=== PATIENT | female | born 1955 | race Caucasian/White ===

== ENCOUNTER 2019-12-18 10:43 | Outpatient (CLI) | payer OTHER, SELFPAY ==
--- NOTE | ~2019-12-18 | US_ITS ---
EXAMINATION: US abdomen complete DATE: 12/18/2019 11:18 INDICATION: Nausea with vomiting, unspecified, cholecystectomy TECHNIQUE: Multiple grayscale and Doppler ultrasound images of the abdomen were obtained. COMPARISON: None available FINDINGS: Bowel gas obscures visualization of the pancreas. The visualized portions of the pancreas a re unremarkable. The liver is normal with normal echogenicity and echotexture. No surface nodularity. Normal hepatopetal flow in the main portal vein. The gallbladder is surgically absent. The normal po stcholecystectomy common bile duct measures 7 mm. The visualized portions of the inferior vena cava a re normal. There is calcified atherosclerosis of the aorta. The right kidney measures 9.8 x 3.0 x 4.3 cm. The left kidney measures 8.8 x 3.5 x 4.0 cm. The kidney s demonstrate normal parenchymal echogenicity. There is no hydronephrosis. The spleen is normal in ap pearance and measures 6.5 cm. IMPRESSION: 1. Unremarkable postcholecystectomy ultrasound. No sonographic correlate for the patient's symptoms. Reviewed, dictated and finalized at location A. IMPRESSION: 1. Unremarkable postcholecystectomy ultrasound. No sonographic correlate for th e patient's symptoms.
== END 2019-12-18 10:44 | disposition home or self-care (01) ==
PROVIDERS: PCP Family Medicine; Visit Provider Internal Medicine Gastroenterology
DX: R10.9 Unspecified abdominal pain (principal); R11.2 Nausea with vomiting, unspecified; Z90.49 Acquired absence of other specified parts of digestive tract
CPT/HCPCS: 76700

== ENCOUNTER 2020-01-12 00:34 | Outpatient (CLI) | payer OTHER, SELFPAY ==
[2020-01-12 14:01] LABS: SARS-CoV-2 RNA PCR Negative
== END 2020-01-12 00:35 | disposition home or self-care (01) ==
LOC: ANHCOVIDDT 00:34
PROVIDERS: PCP Family Medicine; Visit Provider Internal Medicine Gastroenterology
DX: Z01.812 Encounter for preprocedural laboratory examination (principal); Z20.828 Contact with and (suspected) exposure to other viral communicable diseases
CPT/HCPCS: 87635; C9803; U0003

== ENCOUNTER → 2020-01-25 17:53 | Outpatient (CLI) | payer OTHER, SELFPAY ==
--- NOTE | ~2020-01-25 | MM_ITS ---
EXAMINATION: MM screening teri BI w odette HISTORY: Screening mammogram TECHNIQUE: Craniocaudal and mediolateral oblique 3-D tomosynthesis images were obtained and synthetic 2-D images were generated. CAD analysis was submitted and interpreted. COMPARISON: 11/22/2018, 10/21/2017 bilateral digital screening mammogram examinations BREAST PARENCHYMAL COMPOSITION: There are scattered areas of fibroglandular density. FINDINGS: Biopsy marker on the left; history of prior benign left breast biopsy.. There is no evidenc e of suspicious mass, calcification, or architectural distortion to suggest malignancy in either [address]. There has been no suspicious interval change. IMPRESSION: 1. No mammographic evidence of malignancy. 2. Recommend routine screening mammography in one year. BI-RADS Category 1: Negative Reviewed, dictated and finalized at location A.
== END ==
PROVIDERS: PCP Family Medicine; Visit Provider Physician Assistant
DX: Z12.31 Encounter for screening mammogram for malignant neoplasm of breast (principal)
CPT/HCPCS: 77063; 77067

== ENCOUNTER 2020-02-26 01:05 | Outpatient (CLI) | payer OTHER, SELFPAY ==
[2020-02-26 19:48] LABS: SARS-CoV-2 RNA PCR Negative
== END 2020-02-26 01:06 | disposition home or self-care (01) ==
LOC: ANHCOVIDDT 01:05
PROVIDERS: PCP Family Medicine; Visit Provider Internal Medicine Gastroenterology
DX: Z01.818 Encounter for other preprocedural examination (principal); Z20.828 Contact with and (suspected) exposure to other viral communicable diseases
CPT/HCPCS: 87635; C9803; U0003

== ENCOUNTER 2020-02-29 00:59 | Day surgery (SDC) | payer OTHER, SELFPAY ==
[2020-01-09 12:43] VITALS: BMI 18.8
[2020-02-25 13:20] VITALS: BMI 18.5
--- NOTE | 2020-02-29 07:54 | WPDANESEPPF ---
Anes - Initial Pre Proc Eval Procedure: Operation Date: 02/29/20 08:30 Proposed Procedures p Esophagogastroduodenoscopy - Ricky Shell MD Date/Time: 02/29/20 07:54 Surgeon: Ricky Shell MD Pre Op Diagnosis: N & V Patient Data Age: 64 Gender: F Height: 1.57 m Weight: 46 kg Allergies Allergy/AdvReac Type Severity Reaction Status Date / Time morphine Allergy Severe DISORIENTED, Verified 02/25/20 13:15 DENIES HELPING PAIN meperidine Allergy Unknown Vomiting Verified 02/25/20 13:15 tramadol Allergy Unknown Unknown Verified 02/25/20 13:15 metronidazole AdvReac Severe SEVERE Verified 02/25/20 13:15 NAUSEA, VOMITING AND SHAKING Home Medications Medication Instructions Recorded Confirmed Type ondansetron HCl 4 mg tablet 4 mg PO TID PRN #30 tablet 02/27/19 01/31/20 Rx aspirin 81 mg tablet,delayed 81 mg PO DAILY 04/20/19 01/31/20 History release albuterol sulfate 90 mcg/actuation 2 puff INHALATION Q4-6H PRN #8 gm 12/18/19 01/31/20 Rx aerosol inhaler amlodipine 5 mg tablet 5 mg PO DAILY #90 tablet 12/18/19 01/31/20 Rx fluoxetine 20 mg capsule 20 mg PO DAILY #90 cap 12/18/19 01/31/20 Rx hyoscyamine sulfate 0.125 mg 0.125 mg SUBLINGUAL QID PRN #120 12/18/19 01/31/20 Rx sublingual tablet tablet tiotropium bromide 2.5 2 puff INHALATION DAILY #4 gm 12/18/19 01/31/20 Rx mcg/actuation mist for inhalation hydrocodone 7.5 mg-acetaminophen 1 tablet PO Q4-6H PRN #120 tablet 02/13/20 02/25/20 Rx 325 mg tablet diclofenac sodium 75 mg PO DAILY 02/25/20 02/25/20 History misoprostol 200 mcg PO DAILY 02/25/20 02/25/20 History Patient hx anesthesia problems: none Family hx anesthesia problems: none PMFSH Past Medical History Medical History Abdominal pain Breast cancer screening Colon cancer screening COPD mixed type Current smoker Early satiety History of vaginal delivery IBS (irritable colon syndrome) Narcotic dependence Osteoarthritis of back Primary hypertension Spinal stenosis Tobacco abuse Trigger finger of thumb Weight loss Surgical History Surgical History History of ankle surgery History of appendectomy History of cholecystectomy History of hysterectomy History of release of tendon History of tonsillectomy and adenoidectomy Social History Social History Smoking packs per day: 1 Smoking cigarettes per day: 20.0 Years smoked: 50 Smoking pack-years: 50.00 Smoking status: Current every day smoker Tobacco type: cigarettes Second hand tobacco smoke exposure: Yes Alcohol intake: never Substance use: never Substance use type: does not use Living arrangements: with family Additional occupation/education 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 Gender identity (if verbalized by the patient): Female Spiritual care concerns: No Agree to blood products: Yes Anes - Eval Final PreProcedure Day of Procedure 02/29/20 07:54 Patient weight: normal Heart: regular rate and rhythm Lungs: clear to auscultation and normal air movement Airway: Mallampati scale class II Neurological: alert and oriented Last oral intake: >/= 8 hours ASA classification: III Emergent: no Anesthetic plan: proceed Anesthesia type and monitoring: general GIVS Informed Consent: The patient's anesthetic plan and its attendant risks and benefits were discussed with the patient/family/POA. Questions were solicited and answers provided to the satisfaction of the patient/family/POA.
[2020-02-29 08:01] VITALS: BP 144/88; PULSE 67; RESP 18; TEMP 36.8; O2SAT 97; BMI 18.8
[2020-02-29] MEDS: LACTATED RINGERS 1,000 ML 150 ML IV CONT (08:09)
--- NOTE | 2020-02-29 08:12 | WPDHPUPDATE1 ---
History and Physical Update Update Date/Time: 02/29/20 08:12 History and Physical has been reviewed, including an updated exam of the patient. There are NO changes in the patient's condition. Risks, benefits, and alternatives have been discussed and questions answered. Patient agrees to proceed with procedure.
[2020-02-29 08:29] VITALS: BP 114/75; PULSE 66; RESP 20; O2SAT 100
[2020-02-29 08:39] VITALS: BP 125/73; PULSE 62; RESP 19; O2SAT 98
[2020-02-29 08:49] VITALS: BP 141/75; PULSE 63; RESP 20; O2SAT 99
== END 2020-02-29 08:56 | disposition home or self-care (01) ==
PROVIDERS: PCP Family Medicine; Visit Provider Internal Medicine Gastroenterology
PROC: 0DJ08ZZ Inspection of Upper Intestinal Tract, Via Natural or Artificial Opening Endoscopic (ICD-10-PCS; CPT 43235; principal; 2020-02-29 08:30)
DX: R11.0 Nausea (principal); R10.12 Left upper quadrant pain; K44.9 Diaphragmatic hernia without obstruction or gangrene; K29.50 Unspecified chronic gastritis without bleeding; J44.9 Chronic obstructive pulmonary disease, unspecified; K58.9 Irritable bowel syndrome, unspecified; I10 Essential (primary) hypertension; F17.210 Nicotine dependence, cigarettes, uncomplicated
CPT/HCPCS: 43239; 88305; J2704; J7120

== ENCOUNTER 2020-06-19 13:10 | Outpatient (CLI) | payer OTHER, SELFPAY ==
[2020-06-19 13:38] LABS: Hematocrit 43.1 % (37.0-47.0); Hemoglobin 14.8 g/dL (12.0-15.0); Mean Corpuscular HGB Conc 34.3 g/dl (32-36); Mean Corpuscular Hemoglobin 33.9 pg (26-34); Mean Corpuscular Volume 98.9 fl (80-100); Mean Platelet Volume 9.9 fl (7.4-10.4); Platelet Count Result 266 k/mm3 (150-375); Red Blood Count 4.36 M/mm3 (4.2-5.4); Red Cell Distribution Width 14.1 % (11.5-14.5)
[2020-06-19 13:57] LABS: Potassium 3.5 mmol/L (3.4-5.0)
[2020-06-19 14:17] LABS: Alanine Aminotransferase 11 U/L (4-35); Alkaline Phosphatase 82 U/L (38-126); Anion Gap 3 mmol/L (8-16); Aspartate Amino Transferase 21 U/L (14-36); Bilirubin,Total 0.6 mg/dL (0.2-1.3); Blood Urea Nitrogen 11 mg/dL (7-17); Calcium 9.1 mg/dL (8.4-10.2); Carbon Dioxide 32 mmol/L (22-30); Chloride 105 mmol/L (98-107); Estimated Glomerular Filt Rate > 60; Glucose 97 mg/dL (65-105); Lipase 79 U/L (23-300); Sodium 140 mmol/L (137-145); Triglycerides 133 mg/dL (<150)
== END 2020-06-19 13:11 | disposition home or self-care (01) ==
LOC: ANHLAB 13:10
PROVIDERS: PCP Physician Assistant; Visit Provider Internal Medicine Gastroenterology
DX: R10.84 Generalized abdominal pain (principal); R11.0 Nausea; Z87.19 Personal history of other diseases of the digestive system
CPT/HCPCS: 36415; 80053; 83690; 84478; 85027

== ENCOUNTER 2020-07-02 10:55 | Outpatient (CLI) | payer OTHER, SELFPAY ==
--- NOTE | ~2020-07-02 | MR_ITS ---
EXAMINATION: MR MRCP wo/w con/w 3D wo ind DATE: 07/02/2020 12:08 INDICATION: Generalized abdominal pain. Nausea. TECHNIQUE: Magnetic resonance imaging (MRI) of the abdomen was performed without and with 9 mL MultiH ance intravenous contrast. Sequences included coronal T2-weighted FS FSE, coronal T2-weighted FSE, ax ial T1-weighted LAVA, coronal FS FIESTA, axial dual-echo T1-weighted SPGR, coronal lava-FLEX, sagitta l T2-weighted FSE, axial T2-weighted FSE, and axial DWI. Thick-slab T2-weighted FSE images were obtai mary for magnetic resonance cholangiopancreatography (MRCP). Maximum intensity projection 3-D reconstr uctions of the volumetric data were created by the technologist. Postcontrast sequences included linda nal LAVA-flex and time course of axial T1-weighted LAVA. COMPARISON: Ultrasound 12/18/2019 FINDINGS: ABDOMEN MRI: The liver is normal. The gallbladder is absent. The spleen, pancreas, adrenal glands, an d kidneys are normal. There is a 3.0 cm fusiform infrarenal aortic aneurysm. There are no dilated loo ps of bowel. There are no pathologically enlarged lymph nodes. There is no free intraperitoneal fluid . ABDOMEN MRCP: The common duct is normal and measures 10 mm. No choledocholithiasis. IMPRESSION: 1. 3.0 cm fusiform infrarenal aortic aneurysm. Reviewed, dictated and finalized at location A.
== END 2020-07-02 10:56 | disposition home or self-care (01) ==
PROVIDERS: PCP Physician Assistant; Visit Provider Internal Medicine Gastroenterology
DX: R10.84 Generalized abdominal pain (principal); Z87.19 Personal history of other diseases of the digestive system; R11.0 Nausea; I71.9 Aortic aneurysm of unspecified site, without rupture
CPT/HCPCS: 74183; 76376; A9577

== ENCOUNTER 2020-07-04 07:41 | Outpatient (CLI) | payer OTHER, SELFPAY ==
--- NOTE | ~2020-07-04 | NM_ITS ---
EXAM: NM gastric emptying study DATE: 07/04/2020 13:44 INDICATION: Generalized abdominal pain TECHNIQUE: A gastric emptying study was performed using the methodology of Butch GOMES, et al. J Nucl Med 2007; 48:568-572. The patient was given a meal consisting of 2 scrambled eggs labeled with 0.99 mCi Tc-99m sulfur colloid, 2 slices of toast, two packages of jam, and approximately 120 mL of water. Simultaneous anterior and posterior 1-min images of the abdomen were obtained with the patient supin e at multiple time points over a total period of 4 hours. The geometric mean of anterior and posterio r views was determined, and the percentage retention was calculated for each time point. COMPARISON: None. FINDINGS: Gastric retention of the radiotracer-labeled meal was 49%, 18%, and 2% at the 80 minute, 2-hour, and 4-hour time points, respectively. With this technique, apparent rapid gastric emptying is suggested b y <30% gastric retention at 1 hour. Delayed gastric emptying is defined by gastric retention of >90% at 1 hour, >60% retention at 2 hours, or >10% retention at 4 hours. IMPRESSION: 1. Normal gastric emptying. Reviewed, dictated and finalized at location B. IMPRESSION: 1. Normal gastric emptying.
== END 2020-07-04 07:42 | disposition home or self-care (01) ==
PROVIDERS: PCP Physician Assistant; Visit Provider Internal Medicine Gastroenterology
DX: R10.84 Generalized abdominal pain (principal); R11.0 Nausea; Z87.19 Personal history of other diseases of the digestive system
CPT/HCPCS: 78264; A9541

== ENCOUNTER 2020-10-13 08:44 | Outpatient (CLI) | payer OTHER, SELFPAY ==
--- NOTE | ~2020-10-13 | CT_ITS ---
EXAMINATION: CT lung screening DATE: 10/13/2020 09:17 INDICATION: Personal history of nicotine dependence, current smoker with 50 pack year history TECHNIQUE: Computed tomography (CT) of the chest was performed without intravenous contrast. The dose -length product (DLP) was 58.30 mGy-cm. Automated exposure control and iterative reconstruction techn [employer] were employed. COMPARISON: 10/31/2018 FINDINGS: Calcified pulmonary nodules and calcified left lymph nodes are consistent with old granulom atous disease. There is mild emphysema. Scattered 1 to 2 mm nodules of the lungs are stable. No new o r suspicious pulmonary nodule is identified. No pathologically enlarged thoracic lymph nodes are iden tified. The heart size is normal. Calcified coronary artery atherosclerosis is noted. Cholecystectomy clips are present in the right upper quadrant. There is mild thoracic spondylosis. IMPRESSION: 1. Lung-RADS category 2: Benign appearance or behavior. Continue annual screening with noncontrast lo w-dose chest CT in 12 months. Reviewed, dictated and finalized at location B. IMPRESSION: 1. Lung-RADS category 2: Benign appearance or behavior. Continue annual screeni ng with noncontrast low-dose chest CT in 12 months.
== END 2020-10-13 08:45 | disposition home or self-care (01) ==
LOC: ANHIMG 08:47
PROVIDERS: PCP Family Medicine; Visit Provider Family Medicine
DX: Z12.2 Encounter for screening for malignant neoplasm of respiratory organs (principal); R91.1 Solitary pulmonary nodule; F17.200 Nicotine dependence, unspecified, uncomplicated
CPT/HCPCS: 71271

== ENCOUNTER 2020-10-31 08:33 | Outpatient (CLI) | payer OTHER, SELFPAY ==
--- NOTE | 2020-11-03 14:25 | WPDPFTINT ---
PFT Procedure Performed PFT Procedure Performed Plethysmography (Lung Vol) Diffusing Cap (DLCO) Flow Vol Loop Spirometry w/o Bronchodil PFT Interpretation DOS: 10/31/2020 REQUESTING: Dr. Anaya De La Torre REASON FOR TESTING: emphysema PULMONARY FUNCTION TESTS Results are reliable and reproducible. Spirometry: FEV1 is 69% mildly decreased, 1.44 L. FVC is normal 82%. The FEV1/FVC ratio is reduced 66% consistent with mild obstruction. No bronchodilator was given. Lung volumes: total lung capacity is 117% upper limits of normal. Vital capacity 90%. residual volume is moderately increased 154% consistent with moderate air trapping. Airway resistance is increased 163%. Diffusion: DLCO is moderately reduced 51%. Flow volume loop: There is mild scooping of the expiratory limb consistent with obstruction. IMPRESSION: Mild obstructive ventilatory impairment with moderate air trapping and moderate diffusion impairment. this is consistent with emphysema. No bronchodilator was given. No prior studies are available for comparison. Yuliana Stack MD
== END 2020-10-31 08:34 | disposition home or self-care (01) ==
LOC: ANHPFT 08:34
PROVIDERS: PCP Family Medicine; Visit Provider Family Medicine
DX: J43.9 Emphysema, unspecified (principal)
CPT/HCPCS: 94375; 94726; 94729

== ENCOUNTER 2021-11-17 00:08 | Day surgery (SDC) | payer OTHER, SELFPAY ==
[2021-10-29 13:55] VITALS: BMI 20.1
[2021-11-17 08:55] VITALS: BP 157/68; PULSE 87; RESP 18; TEMP 36.5; O2SAT 97; BMI 20.9
[2021-11-17] MEDS: LACTATED RINGERS 1,000 ML 150 ML IV CONT (09:14)
[2021-11-17] MEDS: ONDANSETRON INJ 4 MG/2 ML VIAL IV PUSH (09:16)
--- NOTE | 2021-11-17 09:40 | WPDANESEPPF ---
Anes - Initial Pre Proc Eval Procedure: Operation Date: 11/17/21 10:15 Proposed Procedures p Screening Colonoscopy - Ricky Shell MD Date/Time: 11/17/21 09:40 Surgeon: Ricky Shell MD Pre Op Diagnosis: neoplasm screening Patient Data Age: 65 Gender: F Height: 1.57 m Weight: 52.1 kg Last Vital Signs Temp 97.7 F 11/17/21 08:55 Pulse 87 11/17/21 08:55 Resp 18 11/17/21 08:55 BP 157/68 H 11/17/21 08:55 Pulse Ox 97 11/17/21 08:55 O2 Del Method Room Air 11/17/21 08:55 Allergies Allergy/AdvReac Type Severity Reaction Status Date / Time morphine Allergy Severe DISORIENTED, Verified 11/17/21 09:00 DENIES HELPING PAIN meperidine Allergy Unknown Vomiting Verified 11/17/21 09:00 tramadol Allergy Unknown Unknown Verified 11/17/21 09:00 metronidazole AdvReac Severe SEVERE Verified 11/17/21 09:00 NAUSEA, VOMITING AND SHAKING Home Medications Medication Instructions Recorded Confirmed Type hyoscyamine sulfate 0.125 mg 0.125 mg sublingual QID PRN 12/18/19 11/17/21 Rx sublingual tablet dyspepsia #120 tabs ondansetron HCl 4 mg tablet 4 mg PO TID PRN nausea and 01/29/21 11/17/21 Rx vomiting #90 tabs fluoxetine 20 mg capsule 20 mg PO DAILY #90 caps 02/09/21 11/17/21 Rx sodium,potassium,mag sulfates 17.5 See Rx Instructions PO .COMPLEX 03/23/21 11/17/21 Rx gram-3.13 gram-1.6 gram oral soln #354 mL (Suprep Bowel Prep Kit) amlodipine 5 mg tablet 5 mg PO DAILY #90 tabs 04/08/21 11/17/21 Rx mirtazapine 15 mg tablet 15 mg PO QHS #30 tabs 09/04/21 11/17/21 Rx albuterol sulfate 90 mcg/actuation 2 puff inhalation Q4-6H PRN 09/09/21 11/17/21 Rx aerosol inhaler (ProAir HFA) shortness of breath or wheezing #8 grams tiotropium bromide 2.5 See Rx Instructions .Route 07/08/22 08/02/22 Rx mcg/actuation mist for inhalation .COMPLEX #4 grams (Spiriva Respimat) hydrocodone 7.5 mg-acetaminophen 1 tablet PO Q4-6H PRN pain #120 10/30/21 11/17/21 Rx 325 mg tablet tabs Patient hx anesthesia problems: none Family hx anesthesia problems: none Results Review: All pre-operative results and documents have been reviewed as part of the pre-operative evaluation. [facility] Past Medical History Medical History Abdominal pain Aneurysm of aorta Anxiety Bloating Breast cancer screening Colon cancer screening COPD mixed type Current smoker Early satiety Erosive gastritis Gastritis History of pancreatitis History of vaginal delivery IBS (irritable colon syndrome) Narcotic dependence Nausea Osteoarthritis of back Osteoporosis Peripheral vascular disease of extremity with claudication Primary hypertension Pulmonary emphysema Spinal stenosis Tobacco abuse Trigger finger of thumb Weight loss Surgical History Surgical History History of ankle surgery History of appendectomy History of cholecystectomy History of hysterectomy History of release of tendon History of tonsillectomy and adenoidectomy Social History Social History Smoking packs per day: 1 Smoking cigarettes per day: 20.0 Years smoked: 50 Smoking pack-years: 50.00 Smoking status: Current every day smoker Tobacco type: cigarettes Second hand tobacco smoke exposure: Yes Alcohol intake: never Substance use: current Substance use type: opiates Living arrangements: with family Additional occupation/education 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 Gender identity (if verbalized by the patient): Female Spiritual care concerns: No Agree to blood products: Yes Anes - Eval Final PreProcedure Day of Procedure 11/17/21 09:40 Patient weight: normal Heart: regular rate and rhythm Lungs: clear to auscultation Airway: Mallampati scale class
--- NOTE | 2021-11-17 09:44 | PM.HPGS ---
History of Present Illness History of Present Illness Consent: Risks, benefits, and alternatives have been discussed and questions answered. Patient agrees to proceed with procedure. Chief complaint: neoplasm screening Narrative: Enriqueta Pisano is a 65 year old female here for screening colonoscopy, last one over 6 years ago Review of Systems Constitutional: Constitutional: Denies headache(s) and Denies weakness Eyes: Eyes: Denies blurry vision ENT: Reports Normal hearing present, Denies headache(s) and Denies neck pain Cardiovascular: Cardiovascular: Denies chest pain and Denies dyspnea Respiratory: Respiratory: Denies dyspnea Gastrointestinal: Gastrointestinal: Reports no additional gastrointestinal complaints Genitourinary: Genitourinary: Denies dysuria Musculoskeletal: Musculoskeletal: Denies neck pain Integumentary/Breasts: Skin/Breast: Denies dry skin Neurologic: Reports Normal hearing present, Denies headache(s) and Denies weakness Psychiatric: Psychiatric: Denies anxiety Endocrine: Endocrine: Denies change in body appearance Hematologic/Lymphatic: Hematologic/Lymphatic: Denies easy bleeding Allergic/Immunologic: Allergic/Immunologic: Denies urticaria PMFSH Past Medical History Medical History Abdominal pain Aneurysm of aorta Anxiety Bloating Breast cancer screening Colon cancer screening COPD mixed type Current smoker Early satiety Erosive gastritis Gastritis History of pancreatitis History of vaginal delivery IBS (irritable colon syndrome) Narcotic dependence Nausea Osteoarthritis of back Osteoporosis Peripheral vascular disease of extremity with claudication Primary hypertension Pulmonary emphysema Spinal stenosis Tobacco abuse Trigger finger of thumb Weight loss Surgical History Surgical History History of ankle surgery History of appendectomy History of cholecystectomy History of hysterectomy History of release of tendon History of tonsillectomy and adenoidectomy Social History Social History Smoking packs per day: 1 Smoking cigarettes per day: 20.0 Years smoked: 50 Smoking pack-years: 50.00 Smoking status: Current every day smoker Tobacco type: cigarettes Second hand tobacco smoke exposure: Yes Alcohol intake: never Substance use: current Substance use type: opiates Living arrangements: with family Additional occupation/education 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 Gender identity (if verbalized by the patient): Female Spiritual care concerns: No Agree to blood products: Yes Meds Home Medications and Allergies Home Medications Medication Instructions Recorded Confirmed Type hyoscyamine sulfate 0.125 mg 0.125 mg sublingual QID PRN 12/18/19 11/17/21 Rx sublingual tablet dyspepsia #120 tabs ondansetron HCl 4 mg tablet 4 mg PO TID PRN nausea and 01/29/21 11/17/21 Rx vomiting #90 tabs fluoxetine 20 mg capsule 20 mg PO DAILY #90 caps 02/09/21 11/17/21 Rx sodium,potassium,mag sulfates 17.5 See Rx Instructions PO .COMPLEX 03/23/21 11/17/21 Rx gram-3.13 gram-1.6 gram oral soln #354 mL (Suprep Bowel Prep Kit) amlodipine 5 mg tablet 5 mg PO DAILY #90 tabs 04/08/21 11/17/21 Rx mirtazapine 15 mg tablet 15 mg PO QHS #30 tabs 09/04/21 11/17/21 Rx albuterol sulfate 90 mcg/actuation 2 puff inhalation Q4-6H PRN 09/09/21 11/17/21 Rx aerosol inhaler (ProAir HFA) shortness of breath or wheezing #8 grams tiotropium bromide 2.5 See Rx Instructions .Route 10/23/21 11/17/21 Rx mcg/actuation mist for inhalation .COMPLEX #4 grams (Spiriva Respimat) hydrocodone 7.5 mg-acetaminophen 1 tablet PO Q4-6H PRN pain #120 10/30/21 11/17/21 Rx 325 mg tablet tabs Allergies Allergy/AdvReac Type Severity Reaction Status Date
[2021-11-17 10:05] VITALS: BP 104/64; PULSE 79; RESP 24; O2SAT 95
--- NOTE | 2021-11-17 10:08 | SUR.OPER ---
ONLY ONE ASCENDING COLON POLYP RETRIEVED, DOCTOR NOTIFIED. NO NEW ORDERS AT THIS TIME.
[2021-11-17 10:15] VITALS: BP 98/64; PULSE 69; RESP 22; O2SAT 97
[2021-11-17 10:25] VITALS: BP 109/69; PULSE 68; RESP 22; O2SAT 97
== END 2021-11-17 10:34 | disposition home or self-care (01) ==
PROVIDERS: PCP Family Medicine; Visit Provider Internal Medicine Gastroenterology
PROC: 0DJD8ZZ Inspection of Lower Intestinal Tract, Via Natural or Artificial Opening Endoscopic (ICD-10-PCS; CPT 45378; principal; 2021-11-17 10:15)
DX: Z12.11 Encounter for screening for malignant neoplasm of colon (principal); D12.0 Benign neoplasm of cecum; K63.5 Polyp of colon; K57.30 Diverticulosis of large intestine without perforation or abscess without bleeding; K64.8 Other hemorrhoids; I71.4 Abdominal aortic aneurysm, without rupture; F41.9 Anxiety disorder, unspecified; R14.0 Abdominal distension (gaseous); J44.9 Chronic obstructive pulmonary disease, unspecified; M81.0 Age-related osteoporosis without current pathological fracture; M19.90 Unspecified osteoarthritis, unspecified site; K29.70 Gastritis, unspecified, without bleeding; R68.81 Early satiety; K58.9 Irritable bowel syndrome, unspecified; I10 Essential (primary) hypertension; M48.00 Spinal stenosis, site unspecified; F17.210 Nicotine dependence, cigarettes, uncomplicated; Z79.51 Long term (current) use of inhaled steroids
CPT/HCPCS: 45385; 88305; J2405; J2704; J7120

== ENCOUNTER 2023-03-17 11:28 | Outpatient (CLI) | payer OTHER, SELFPAY ==
[2023-03-17 13:02] LABS: Hemoglobin 14.3 g/dL (12.0-15.0); Mean Corpuscular HGB Conc 32.5 g/dl (32-36); Mean Corpuscular Hemoglobin 33.5 pg (26-34); Mean Platelet Volume 10.6 fl (7.4-10.4); Platelet Count Result 268 k/mm3 (150-375); Red Blood Count 4.27 M/mm3 (4.2-5.4); Red Cell Distribution Width 15.1 % (11.5-14.5); White Blood Count 8.5 K/mm3 (4.5-10.0)
[2023-03-17 13:13] LABS: Alanine Aminotransferase 24 U/L (6-35); Albumin Level 4.5 g/dL (3.5-5.1); Alkaline Phosphatase 109 U/L (38-126); Amylase 79 U/L (30-110); Anion Gap 14 mmol/L (8-16); Aspartate Amino Transferase 28 U/L (14-36); Bilirubin,Total 0.7 mg/dL (0.2-1.3); Blood Urea Nitrogen 10 mg/dL (7-17); Carbon Dioxide 21 mmol/L (22-30); Chloride 106 mmol/L (98-107); Estimated Glomerular Filt Rate > 60; Glucose 103 mg/dL (65-110); Lipase 146 U/L (23-300); Potassium 3.5 mmol/L (3.4-5.0); Sodium 141 mmol/L (137-145)
== END 2023-03-17 11:29 | disposition home or self-care (01) ==
LOC: ANHLAB 11:29
PROVIDERS: PCP Family Medicine; Visit Provider Internal Medicine Gastroenterology
DX: R11.0 Nausea (principal); R14.0 Abdominal distension (gaseous)
CPT/HCPCS: 36415; 80053; 82150; 83690; 85027

== ENCOUNTER 2023-04-03 12:55 | Emergency (ER) | payer OTHER, SELFPAY ==
--- NOTE | ~2023-04-03 | XR_ITS ---
[[id number] ] INDICATION: Left rib pain TECHNIQUE: Frontal projection of the upper left ribs, frontal projection of the lower left ribs, obli que projection of all the left ribs, frontal inspiratory chest x-ray for interpretation. FINDINGS: There are no displaced rib fractures identified. There are no soft tissue abnormality see n. The lungs are clear. There are multiple calcified granulomas of the left lung. There is mild sco liosis. IMPRESSION: 1:No acute displaced rib fractures. Reviewed, dictated and finalized at location A. E ERECTOR SUPERVISOR
--- NOTE | 2023-04-03 12:58 | ED.GENADULT ---
HPI - General Adult General Chief complaint: Unspecified Stated complaint: rib pain left side Time Seen by Provider: 04/03/23 13:41 Mode of arrival: ambulatory Limitations: no limitations History of Present Illness HPI narrative: 67-year-old female presents with concern for left rib pain. Reports she was bending over in an awkward way yesterday when she felt a pop in her left anterior rib area. She reports that it hurts when taking a deep breath or coughing. She denies shortness of breath. Reports she has been using her albuterol and Spiriva as usual. MD complaint: Rib pain Related Data Home Medications Medication Instructions Recorded Confirmed tiotropium bromide 2.5 1 puff inhalation DIRECTED 04/03/23 04/03/23 mcg/actuation mist for inhalation (Spiriva Respimat) Allergies Allergy/AdvReac Type Severity Reaction Status Date / Time morphine Allergy Severe DISORIENTED, Verified 04/03/23 13:19 DENIES HELPING PAIN meperidine Allergy Unknown Vomiting Verified 04/03/23 13:19 tramadol Allergy Unknown Unknown Verified 04/03/23 13:19 metronidazole AdvReac Severe SEVERE Verified 04/03/23 13:19 NAUSEA, VOMITING AND SHAKING Review of Systems Review of Systems: CONSTITUTIONAL: Denies malaise, chills, sweats, or fever. EYES: Denies visual changes, redness, or discharge. ENT: Denies rhinorrhea, congestion, sinus pain, otalgia or sore throat. CARDIOVASCULAR: Denies chest pain, palpitations, or edema. RESPIRATORY: Reports chronic cough. Denies dyspnea. Reports left anterior rib pain SKIN: Denies bruising MUSCULOSKELETAL: Denies myalgia. NEUROLOGIC: Denies numbness, weakness All systems reviewed & are unremarkable except as noted in HPI and below PMFSH Past Medical History Medical History (Updated 04/03/23 @ 13:51 by Lanie Roldan NP) Abdominal pain Adenomatous colon polyp Aneurysm of aorta Anxiety Bloating Breast cancer screening Colon cancer screening COPD mixed type Current smoker Early satiety Erosive gastritis Gastritis History of pancreatitis History of vaginal delivery IBS (irritable colon syndrome) Narcotic dependence Nausea Osteoarthritis of back Osteoporosis Peripheral vascular disease of extremity with claudication Primary hypertension Pulmonary emphysema Spinal stenosis Tobacco abuse Trigger finger of thumb Weight loss Surgical History Surgical History History of ankle surgery History of appendectomy History of cholecystectomy History of hysterectomy History of release of tendon History of tonsillectomy and adenoidectomy Social History Social History Smoking packs per day: 1 Smoking cigarettes per day: 20.0 Years smoked: 50 Smoking pack-years: 50.00 Smoking status: Current every day smoker Tobacco type: cigarettes Second hand tobacco smoke exposure: Yes Alcohol intake: never Substance use: current Substance use type: opiates Lack of Transportation: No Lack of Food: Never True Current Housing: I Have Housing Concerned About Future Housing: No Difficulty Paying Gas/Electric Bills: No Difficulty Paying for Meds: No Currently Unemployed: No Education: High School Diploma/GED Difficulty w/ Childcare or Family Care: No Living arrangements: with family Occupation/Education: occupation Additional occupation/education 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 Gender identity (if verbalized by the patient): Female Spiritual care concerns: No Agree to blood products: Yes Comments At time of signature, agree with nursing past medical, surgical, social and family history. There is no relevant family history pertinent to the presenting complaint Exam Narrative: GENERAL: Well-appearing, well-nourished, and in no acute distress. HEAD: Normocephalic, a
[2023-04-03 13:08] VITALS: BP 152/75; PULSE 76; RESP 16; TEMP 36.9; O2SAT 95
== END 2023-04-03 13:54 | disposition home or self-care (01) ==
PROVIDERS: Emergency Provider Nurse Practitioner; PCP Family Medicine
DX: R07.81 Pleurodynia (principal); F17.210 Nicotine dependence, cigarettes, uncomplicated; I10 Essential (primary) hypertension; J44.9 Chronic obstructive pulmonary disease, unspecified; F41.9 Anxiety disorder, unspecified
CPT/HCPCS: 71101; 99213; G0463

== ENCOUNTER 2023-06-01 12:31 | Outpatient (CLI) | payer OTHER, SELFPAY ==
--- NOTE | ~2023-06-01 | XR_ITS ---
EXAMINATION: XR abdomen obstructive series DATE: 06/01/2023 12:51 INDICATION: Left abdominal pain. TECHNIQUE: Upright and supine views of the abdomen on 3 radiographs were obtained. COMPARISON: None. FINDINGS: There are no dilated loops of bowel. There is a moderate volume of stool in the colon. No f ree intraperitoneal gas. Surgical clips in the right upper quadrant are likely from cholecystectomy. There are phleboliths in the pelvis. IMPRESSION: 1. Normal bowel gas pattern. Reviewed, dictated and finalized at location A. CAPPER HELPER
[2023-06-01 13:17] LABS: Hematocrit 41.2 % (37.0-47.0); Hemoglobin 13.5 g/dL (12.0-15.0); Mean Corpuscular HGB Conc 32.8 g/dl (32-36); Mean Corpuscular Hemoglobin 32.5 pg (26-34); Mean Corpuscular Volume 99.3 fl (80-100); Mean Platelet Volume 9.9 fl (7.4-10.4); Platelet Count Result 259 k/mm3 (150-375); Red Blood Count 4.15 M/mm3 (4.2-5.4); Red Cell Distribution Width 14.4 % (11.5-14.5); White Blood Count 6.2 K/mm3 (4.5-10.0)
[2023-06-01 13:28] LABS: Alanine Aminotransferase 22 U/L (6-35); Albumin Level 3.8 g/dL (3.5-5.1); Alkaline Phosphatase 105 U/L (38-126); Anion Gap 6 mmol/L (8-16); Aspartate Amino Transferase 28 U/L (14-36); Bilirubin,Total 0.6 mg/dL (0.2-1.3); Blood Urea Nitrogen 11 mg/dL (7-17); Calcium 8.7 mg/dL (8.4-10.2); Carbon Dioxide 24 mmol/L (22-30); Chloride 108 mmol/L (98-107); Estimated Glomerular Filt Rate > 60; Glucose 96 mg/dL (65-110); Lipase 104 U/L (23-300); Sodium 138 mmol/L (137-145)
== END 2023-06-01 12:32 | disposition home or self-care (01) ==
PROVIDERS: PCP Family Medicine; Visit Provider Physician Assistant
DX: R10.9 Unspecified abdominal pain (principal)
CPT/HCPCS: 36415; 74019; 80053; 83690; 85027

== ENCOUNTER 2023-08-08 20:51 | Emergency (ER) | payer OTHER, SELFPAY ==
--- NOTE | ~2023-08-08 | CT_ITS ---
EXAMINATION: CT abdomen pelvis w con DATE: 08/09/2023 02:01 INDICATION: Abdominal pain. Nausea, vomiting, and diarrhea. TECHNIQUE: Computed tomography (CT) of the abdomen and pelvis was performed with 100 mL Omnipaque 350 intravenous contrast. Automated exposure control and iterative reconstruction technique were employe d. The dose-length product was 224.05 mGy-cm. COMPARISON: None. FINDINGS: The visualized portions of the lung bases demonstrate mild atelectasis. There is mild emphy sema. No pleural effusion. The heart size is normal. No pericardial effusion. There are 5 masses in t he liver measuring up to 19 mm. There are changes of cholecystectomy. The spleen is normal. There is a 2.0 x 1.9 cm hypodense mass in the tail the pancreas with pancreatic duct dilatation upstream from the mass. There is fat stranding around the tail the pancreas. The adrenal glands and right kidney ar e normal. There is a 5 mm cyst in left kidney. There is a fusiform aneurysm of infrarenal aorta measu ring 3.7 cm. There is diverticulosis of the colon. There is wall thickening of the sigmoid colon. The re are no dilated loops of bowel. The appendix is not visualized. There are no pathologically enlarge d lymph nodes. There is mild lumbar spondylosis. IMPRESSION: 1. 2.0 cm mass in the pancreas, consistent with primary adenocarcinoma. 2. Liver masses, consistent with metastatic disease. Ultrasound-guided core needle biopsy is recommen ded. I discussed these findings with Dr. Lovell. 3. 3.7 cm fusiform aneurysm of infrarenal aorta. 4. Wall thickening of the sigmoid colon, which may be colitis. Reviewed, dictated and finalized at location E. IMPRESSION: 1. 2.0 cm mass in the pancreas, consistent with primary adenocarcinoma. 2. Liver masses, consistent with metastatic disease. Ultrasound-guided core nee dle biopsy is recommended. I discussed these findings with Dr. Lovell. 3. 3.7 cm fusiform aneurysm of infrarenal aorta. 4. Wall thickening of the sigmoid colon, which may be colitis.
[2023-08-08 21:02] VITALS: BP 126/67; PULSE 94; RESP 18; TEMP 36.4; O2SAT 95
[2023-08-09] VITALS (7 sets, daily range): BP systolic 112–134; BP diastolic 61–91; PULSE 68–81; RESP 14–18; O2SAT 94–100
[2023-08-09 00:52] LABS: Basophils Absolute Auto 0.1 K/mm3 (0.0-0.1); Basophils Percent Auto 0.5 % (0.2-1.2); Eosinophils Absolute Auto 0.1 K/mm3 (0-0.3); Eosinophils Percent Auto 0.7 % (0-4.4); Hematocrit 40.6 % (37.0-47.0); Immature Granulocyte Absolute 0.04 K/mm3 (0.00-0.031); Immature Granulocyte Percent A 0.4 % (0-0.5); Lymphocytes Absolute Auto 1.84 K/mm3 (0.9-3.2); Lymphocytes Percent Auto 17.5 % (18.3-44.2); Mean Corpuscular HGB Conc 34.5 g/dl (32-36); Mean Corpuscular Hemoglobin 33.7 pg (26-34); Mean Corpuscular Volume 97.6 fl (80-100); Mean Platelet Volume 9.8 fl (7.4-10.4); Monocytes Absolute Auto 0.9 K/mm3 (0.1-0.6); Monocytes Percent Auto 8.1 % (2.6-8.5); Neutrophils Absolute Auto 7.7 K/mm3 (1.3-6.7); Neutrophils Percent Auto 72.8 % (45.5-73.1); Platelet Count Result 286 k/mm3 (150-375); Red Blood Count 4.16 M/mm3 (4.2-5.4); Red Cell Distribution Width 14.3 % (11.5-14.5); White Blood Count 10.5 K/mm3 (4.5-10.0)
[2023-08-09 01:03] LABS: Alanine Aminotransferase 22 U/L (6-35); Albumin Level 4.2 g/dL (3.5-5.1); Alkaline Phosphatase 89 U/L (38-126); Anion Gap 9 mmol/L (4-12); Aspartate Amino Transferase 29 U/L (14-36); Bilirubin,Total 1.3 mg/dL (0.2-1.3); Blood Urea Nitrogen 16 mg/dL (7-17); Carbon Dioxide 23 mmol/L (22-30); Chloride 100 mmol/L (98-107); Estimated CRCL calculation 51 ml/min; Estimated Glomerular Filt Rate > 60; Glucose 79 mg/dL (65-110); Lipase 255 U/L (23-300); Potassium 3.3 mmol/L (3.4-5.0); Sodium 132 mmol/L (137-145)
[2023-08-09 01:06] LABS: Appearance Urine Clear (Clear); Bacteria Urine None Seen /hpf; Bilirubin Urine Negative (Negative); Blood Urine Non-Hemolyzed Trace (Negative); Color Urine Yellow (Yellow); Glucose Urine UA Negative (Negative); Ketones Urine 4+ mg/dL (Negative); Leukocyte Esterase Ur Negative LEU/UL (Negative); Nitrate Urine Negative (Negative); Non Pathogenic Casts 0-2; Protein Urine 1+ mg/dL (Negative); RBC Urine 0-2 /hpf (0-2); Specific Grav Ur 1.023 (1.001-1.035); Squamous Epithelial Cell Urine Occasional /hpf (Few); WBC Urine 0-5 /hpf (0-3); pH Urine 5.5 (5.0-9.0)
[2023-08-09 01:08] LABS: Add Urine Microscopic? YES
[2023-08-09] MEDS: SODIUM CHLORIDE 0.9% IV 1,000 ML 999 ML IV CONT (01:17)
[2023-08-09] MEDS: ONDANSETRON INJ 4 MG/2 ML VIAL IV PUSH ×2 (01:18→03:39)
[2023-08-09] MEDS: HYDROmorphone HCL INJ (*CRX) 1 MG/ML SYR IV PUSH (01:19)
--- NOTE | 2023-08-09 01:25 | ED.GENADULT ---
HPI - General Adult General Chief complaint: Abdominal Pain Stated complaint: N/V/D abd pain Time Seen by Provider: 08/09/23 00:42 History of Present Illness HPI narrative: Patient is a 67-year-old female who presents emergency department with chief complaint of abdominal pain. Patient reports that on Tuesday she started having pain worse on the right side of her abdomen that radiates to her back patient states the pain is sharp reports he is unable to get comfortable reports that she has history of IBS reports prior cholecystectomy and appendectomy. Patient reports that she has had some nausea vomiting with this and also has had diarrhea. Related Data Allergies Allergy/AdvReac Type Severity Reaction Status Date / Time morphine Allergy Severe DISORIENTED, Verified 06/30/23 11:36 DENIES HELPING PAIN meperidine Allergy Unknown Vomiting Verified 06/30/23 11:36 tramadol Allergy Unknown Unknown Verified 06/30/23 11:36 metronidazole AdvReac Severe SEVERE Verified 06/30/23 11:36 NAUSEA, VOMITING AND SHAKING Review of Systems Review of Systems: A 10 system review of systems was completed on the patient and is negative except for what is stated in the HPI. Nursing and ancillary documentation was reviewed. [facility] Past Medical History Medical History Abdominal pain Adenomatous colon polyp Aneurysm of aorta Anxiety Breast cancer screening Chronic LUQ pain Colon cancer screening COPD mixed type Current smoker Early satiety Erosive gastritis Gastritis History of pancreatitis History of vaginal delivery IBS (irritable colon syndrome) Narcotic dependence Nausea Need for pneumococcal vaccination Osteoarthritis of back Osteoporosis Peripheral vascular disease of extremity with claudication Primary hypertension Pulmonary emphysema Screening mammogram, encounter for Spinal stenosis Thrush Tobacco abuse Trigger finger of thumb Urinary incontinence Weight loss Surgical History Surgical History History of ankle surgery History of appendectomy History of cholecystectomy History of hysterectomy History of release of tendon History of tonsillectomy and adenoidectomy Social History Social History Smoking packs per day: 1 Smoking cigarettes per day: 20.0 Years smoked: 50 Smoking pack-years: 50.00 Smoking status: Current every day smoker Tobacco type: cigarettes Second hand tobacco smoke exposure: Yes Alcohol intake: never Substance use: current Substance use type: opiates Lack of Transportation: No Lack of Food: Never True Current Housing: I Have Housing Concerned About Future Housing: No Difficulty Paying Gas/Electric Bills: No Difficulty Paying for Meds: No Currently Unemployed: No Education: High School Diploma/GED Difficulty w/ Childcare or Family Care: No Living arrangements: with family Occupation/Education: occupation Additional occupation/education 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 Gender identity (if verbalized by the patient): Female Spiritual care concerns: No Agree to blood products: Yes Exam Narrative: GENERAL: Well-appearing, well-nourished, and in no acute distress. HEAD: Normocephalic, atraumatic. EYES: PERRLA and EOMI. ENT: Nares clear, no rhinorrhea or epistaxis. Mucous membranes moist. NECK: Supple. CHEST: Clear to auscultation. No respiratory distress. HEART: Regular rate and rhythm. No murmur heard. Normal peripheral pulses. ABDOMEN: Soft, diffusely tender to palpation, nondistended, normal active bowel sounds. EXTREMITIES: Normal range of motion. No edema. SKIN: Warm, dry, no rash. NEURO: No focal deficits. Alert and oriented x3. PSYCH: Normal mood and affect. Course Nery
[2023-08-09] MEDS: AMOXICILLIN/CLAVULANATE K 875-125 MG TAB 1 TABLET PO (03:39)
== END 2023-08-09 03:51 | disposition home or self-care (01) ==
PROVIDERS: Emergency Provider Emergency Medicine; PCP Family Medicine
DX: K57.32 Diverticulitis of large intestine without perforation or abscess without bleeding (principal); I71.9 Aortic aneurysm of unspecified site, without rupture; I10 Essential (primary) hypertension; J43.9 Emphysema, unspecified; K58.9 Irritable bowel syndrome, unspecified; M81.0 Age-related osteoporosis without current pathological fracture; R32 Unspecified urinary incontinence; Z86.010 Personal history of colon polyps; Z90.49 Acquired absence of other specified parts of digestive tract; Z90.710 Acquired absence of both cervix and uterus; K86.89 Other specified diseases of pancreas; K76.89 Other specified diseases of liver; R93.3 Abnormal findings on diagnostic imaging of other parts of digestive tract
CPT/HCPCS: 36415; 74177; 80053; 81001; 83690; 85025; 96361; 96374; 96375; 96376; 99284; A9270; J1170; J2405; J7030; Q9967

== ENCOUNTER 2023-08-09 14:08 | Inpatient (IN) | payer OTHER, MEDICARE, SELFPAY ==
[2023-08-09] VITALS (7 sets, daily range): BP systolic 136–156; BP diastolic 53–91; PULSE 77–90; RESP 15–20; TEMP 36.3–37.2; O2SAT 93–100
--- NOTE | ~2023-08-09 | XR_ITS ---
EXAMINATION: XR chest 1V portable 08/10/2023 12:56 INDICATION: Chest pain PROCEDURE: AP portable chest COMPARISON: 06/09/2015 FINDINGS: The lungs are clear. There are calcified granulomas of the left lung. The cardiomediastinal silhouette is within normal limits. There are no pleural effusions. There is no pneumothorax suspe cted. IMPRESSION: 1: NO ACUTE CARDIOPULMONARY DISEASE. Reviewed, dictated and finalized at location B.
--- NOTE | ~2023-08-09 | US_ITS ---
EXAMINATION: US biopsy liver DATE: 08/10/2023 14:42 INDICATION: Liver masses suspicious for metastatic disease TECHNIQUE: The procedure including the risks and benefits was discussed with the patient. Risks discu ssed included bleeding and infection. The patient understood the risks and agreed to proceed. The sk in overlying the liver was prepped and draped in usual sterile fashion. Anesthetic was administered with 1% lidocaine subcutaneously. An 18 gauge core biopsy needle was advanced under continuous ultra sound observation to the lesion of interest. 3 core biopsy specimens were obtained. The needle was removed and the entry site was cleaned and dressed. Post procedure ultrasound demonstrated no hemorr jeana. FINDINGS: Ultrasound images demonstrate a subtle hypoechoic nodules. Subsequent images demonstrate th e biopsy needle advanced into a 2.0 x 1.1 x 1.7 cm nodule in segment IVb of the liver. IMPRESSION: 1. Successful Ultrasound-guided biopsy of 2.0 cm hypoechoic nodule in segment IVb of the liver. Reviewed, dictated and finalized at location A. IMPRESSION: 1. Successful Ultrasound-guided biopsy of 2.0 cm hypoechoic nodule in segment I Vb of the liver.
--- NOTE | ~2023-08-09 | XR_ITS ---
XR fl guide central line place Indication: Insertion of portacatheter TECHNIQUE: Fluoroscopy used during insertion of portacatheter performed by [Gary Singh MD] o n 08/12/2023. Fluoroscopy time is 19 seconds with one fluoroscopic images captured. FINDINGS: Correlate with procedure note. IMPRESSION: Fluoroscopy used during insertion of portacatheter. Reviewed, dictated and finalized at location B.
--- NOTE | ~2023-08-09 | XR_ITS ---
EXAMINATION: XR chest port-a-cath/central DATE: 08/12/2023 15:41 INDICATION: Port catheter insertion TECHNIQUE: frontal view of the chest was obtained. COMPARISON: Chest radiograph dated 08/10/2023 FINDINGS: Right internal jugular central venous port catheter with distal tip at the midsuperior vena cava. Sev eral small calcified nodules in the left upper lung consistent with old granulomatous disease. Blunti ng at the left costophrenic and cardiophrenic angles consistent with small left pleural effusion. No other airspace opacities, pulmonary edema, pneumothorax or right-sided pleural effusion. The cardiome diastinal silhouette is normal. IMPRESSION: 1. No pneumothorax post placement of a right internal jugular central venous port catheter with dista l tip at the midsuperior vena cava. 2. New small left pleural effusion. Reviewed, dictated and finalized at location A. IMPRESSION: 1. No pneumothorax post placement of a right internal jugular central venous po rt catheter with distal tip at the midsuperior vena cava. 2. New small left pleural effusion.
--- NOTE | 2023-08-09 16:27 | ED.GENADULT ---
HPI - General Adult General Chief complaint: Recheck/Abnormal Lab/Rx Stated complaint: abnormal scan Time Seen by Provider: 08/09/23 15:40 History of Present Illness HPI narrative: Patient is a 67-year-old female with history of hypertension, active smoker here today with abnormal CT scan. She notes that over the last 3-4 days she has been experiencing some diffuse abdominal pain with subjective chills, diarrhea, vomiting. She came to the emergency department last night and was initially told that her CT scan showed she had diverticulitis, she was provided with a prescription for antibiotics, got a dose here which she believes she may have vomited up when she went home. The hospital radiologist to reread the imaging this morning, concerning for a pancreatic mass and the patient was called to return to the emergency department to be hospitalized and receive a biopsy and further treatment planning. patient notes that her abdominal pain continues, is diffuse, rates it a 7/10 and continues to be so seated with significant nausea despite attempts at Zofran both here overnight and at home. She does see Dr. Dietrich, is scheduled for an upper endoscopy on 08/15 due to ongoing upper abdominal pain to evaluate for possible cause of her symptoms. No blood thinner use. Related Data Allergies Allergy/AdvReac Type Severity Reaction Status Date / Time morphine Allergy Severe DISORIENTED, Verified 08/09/23 15:14 DENIES HELPING PAIN meperidine Allergy Unknown Vomiting Verified 08/09/23 15:14 tramadol Allergy Unknown Unknown Verified 08/09/23 15:14 metronidazole AdvReac Severe SEVERE Verified 08/09/23 15:14 NAUSEA, VOMITING AND SHAKING Review of Systems Review of Systems: All systems reviewed & are unremarkable except as noted in HPI and below PMFSH Past Medical History Medical History Abdominal pain Adenomatous colon polyp Aneurysm of aorta Anxiety Breast cancer screening Chronic LUQ pain Colon cancer screening COPD mixed type Current smoker Early satiety Erosive gastritis Gastritis History of pancreatitis History of vaginal delivery IBS (irritable colon syndrome) Narcotic dependence Nausea Need for pneumococcal vaccination Osteoarthritis of back Osteoporosis Peripheral vascular disease of extremity with claudication Primary hypertension Pulmonary emphysema Screening mammogram, encounter for Spinal stenosis Thrush Tobacco abuse Trigger finger of thumb Urinary incontinence Weight loss Surgical History Surgical History History of ankle surgery History of appendectomy History of cholecystectomy History of hysterectomy History of release of tendon History of tonsillectomy and adenoidectomy Social History Social History Smoking packs per day: 1 Smoking cigarettes per day: 20.0 Years smoked: 50 Smoking pack-years: 50.00 Smoking status: Current every day smoker Tobacco type: cigarettes Second hand tobacco smoke exposure: Yes Alcohol intake: never Substance use: current Substance use type: opiates Lack of Transportation: No Lack of Food: Never True Current Housing: I Have Housing Concerned About Future Housing: No Difficulty Paying Gas/Electric Bills: No Difficulty Paying for Meds: No Currently Unemployed: No Education: High School Diploma/GED Difficulty w/ Childcare or Family Care: No Living arrangements: with family Occupation/Education: occupation Additional occupation/education 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 Gender identity (if verbalized by the patient): Female Spiritual care concerns: No Agree to blood products: Yes Exam Narrative: GENERAL: Well-appearing, well-nourished, and in no acute distress. HEAD:
[2023-08-09] MEDS: LACTATED RINGERS 1,000 ML 999 ML IV CONT (17:01)
[2023-08-09] MEDS: METOCLOPRAMIDE HCL INJ 10 MG/2 ML VIAL IV PUSH (17:01)
[2023-08-09 17:02] LABS: Basophils Percent Auto 0.4 % (0.2-1.2); Eosinophils Percent Auto 0.2 % (0-4.4); Hematocrit 41.2 % (37.0-47.0); Immature Granulocyte Absolute 0.04 K/mm3 (0.00-0.031); Immature Granulocyte Percent A 0.4 % (0-0.5); Lymphocytes Absolute Auto 1.36 K/mm3 (0.9-3.2); Lymphocytes Percent Auto 13.2 % (18.3-44.2); Mean Corpuscular Hemoglobin 33.6 pg (26-34); Mean Corpuscular Volume 98.8 fl (80-100); Mean Platelet Volume 9.9 fl (7.4-10.4); Monocytes Absolute Auto 0.6 K/mm3 (0.1-0.6); Monocytes Percent Auto 6.1 % (2.6-8.5); Neutrophils Absolute Auto 8.2 K/mm3 (1.3-6.7); Neutrophils Percent Auto 79.7 % (45.5-73.1); Platelet Count Result 297 k/mm3 (150-375); Red Blood Count 4.17 M/mm3 (4.2-5.4); Red Cell Distribution Width 14.3 % (11.5-14.5); White Blood Count 10.3 K/mm3 (4.5-10.0)
[2023-08-09 17:14] LABS: Lipase 151 U/L (23-300)
[2023-08-09] MEDS: DICYCLOMINE HCL INJ 20 MG/2 ML VIAL IM (17:15)
[2023-08-09] MEDS: diphenhydrAMINE HCl INJ 50 MG/ML VIAL 25 MG IV PUSH (17:15)
[2023-08-09 17:19] LABS: Partial Thromboplastin Time 29.4 Seconds (22.3-36.8); Prothrombin Time 13.4 Seconds (11.1-14.7)
[2023-08-09 17:26] LABS: Alanine Aminotransferase 20 U/L (6-35); Albumin Level 4.2 g/dL (3.5-5.1); Alkaline Phosphatase 92 U/L (38-126); Anion Gap 16 mmol/L (4-12); Aspartate Amino Transferase 31 U/L (14-36); Bilirubin,Total 1.4 mg/dL (0.2-1.3); Blood Urea Nitrogen 14 mg/dL (7-17); Carbon Dioxide 14 mmol/L (22-30); Chloride 104 mmol/L (98-107); Estimated CRCL calculation 58 ml/min; Estimated Glomerular Filt Rate > 60; Glucose 75 mg/dL (65-110); Potassium 3.5 mmol/L (3.4-5.0); Sodium 134 mmol/L (137-145)
[2023-08-09] MEDS: PIPERACILLIN/TAZ 4.5G/NS 100ML 4.5 GM/100 ML BAG IVPB ×2 (17:53→23:34)
--- NOTE | 2023-08-09 18:04 | ADMGEN ---
This patient, Enriqueta Pisano, was admitted to Medical Room 349-01. Patient/family oriented to hospital policies and general routines including ID bracelet, bed and alarms, visiting hours, pain management, procedures, bathroom and other care routines, personal items, smoking policy, room service/diet, and visiting hours. Information on how to activate the Rapid Response Team has been discussed. Patient/Family are encouraged to report perceived risks to care and to ask questions if they do not understand what they are told or what they should do.
--- NOTE | 2023-08-09 20:17 | ECG_ITS ---
SEE SCANNED COPY FOR CONFIRMED REPORT MTDD
--- NOTE | 2023-08-09 21:00 | PM.IMHP ---
H&P: HPI History of Present Illness Date/Time: 08/09/23 21:00 Chief Complaint: Abdominal pain Narrative: 67-year-old female with past medical history active tobacco abuse, hypertension, irritable bowel syndrome, diverticulitis, gastritis, aortic aneurysm, COPD, peripheral artery disease, who presents with worsening abdominal pain nausea and and nonbloody diarrhea, chills. She has been followed for some time with Dr. Dietrich for this issue and has been prescribed hyoscyamine, Tagamet Zofran p.r.n.. EGD February 2020 demonstrated gastritis, hiatal hernia. MRCP and gastric emptying study unremarkable in 2020. Colonoscopy in 2021 demonstrated diverticulosis and internal hemorrhoids. She presented to [facility] yesterday for the abdominal pain. The preliminary read on the CT abdomen reported diverticulitis, she was prescribed Augmentin and Zofran and sent home. She was called back for the official read demonstrated a 2 cm mass in the pancreas consistent with primary a dental carcinoma and liver masses consistent with metastatic disease plus colitis. Re-examination in [facility] with Dr. Urrutia demonstrates mild leukocytosis 10,300 white count, sodium 134, anion gap 16, serum creatinine 0.6, total bilirubin 1.4. Admission requested, Dr. Braga contacted in ER and reports he can perform ultrasound-guided biopsy of the pancreatic mass. She received Bentyl Zosyn morphine and Zofran, 1 L bolus of lactated Ringer's in the ER. Upon my evaluation he still appeared unwell was actively vomiting. Currently a poor historian vomiting and her at bedside does not offer much history either. Review of Systems Review of Systems: All systems reviewed & are unremarkable except as noted in HPI and below (Subjective) [facility] Past Medical History Medical History Abdominal pain Adenomatous colon polyp Aneurysm of aorta Anxiety Breast cancer screening Chronic LUQ pain Colon cancer screening COPD mixed type Current smoker Early satiety Erosive gastritis Gastritis History of pancreatitis History of vaginal delivery IBS (irritable colon syndrome) Narcotic dependence Nausea Need for pneumococcal vaccination Osteoarthritis of back Osteoporosis Peripheral vascular disease of extremity with claudication Primary hypertension Pulmonary emphysema Screening mammogram, encounter for Spinal stenosis Thrush Tobacco abuse Trigger finger of thumb Urinary incontinence Weight loss Surgical History Surgical History History of ankle surgery History of appendectomy History of cholecystectomy History of hysterectomy History of release of tendon History of tonsillectomy and adenoidectomy Family History Family History (Updated 08/09/23 @ 18:21 by Richa Chen RN) Other Unknown family medical history Social History Social History Smoking packs per day: 1 Smoking cigarettes per day: 20.0 Years smoked: 50 Smoking pack-years: 50.00 Smoking status: Current every day smoker Second hand tobacco smoke exposure: Yes Alcohol intake: never Other substance usage details: perscription only Do You Feel Safe in your Home?: Yes Lack of Transportation: No Lack of Food: Never True Current Housing: I Have Housing Concerned About Future Housing: No Difficulty Paying Gas/Electric Bills: No Difficulty Paying for Meds: No Currently Unemployed: No Education: High School Diploma/GED Difficulty w/ Childcare or Family Care: No Living arrangements: with family Occupation/Education: occupation Additional occupation/education 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 Gender identity (if verbalized by the patient): Female Spiritual care concerns: No Agree to blood products: Yes Meds Home Medicatio
[2023-08-09] MEDS: HYDROmorphone HCL INJ (*CRX) 1 MG/ML SYR 0.5 MG IV PUSH (21:25)
[2023-08-09] MEDS: NICOTINE (*PBKC) 21 MG PATCH 1 PATCH TRANSDERM (21:25)
[2023-08-09] MEDS: LACTATED RINGERS 1,000 ML 150 ML IV CONT (21:26)
[2023-08-09] MEDS: ONDANSETRON INJ 4 MG/2 ML VIAL IV PUSH (21:26)
[2023-08-09] MEDS: PANTOPRAZOLE SODIUM IV 40 MG VIAL IV PUSH (21:26)
[2023-08-09 21:53] LABS: Glucose Point of Care 76 mg/dl (65-105)
[2023-08-09 23:47] LABS: Glucose Point of Care 70 mg/dl (65-105)
[2023-08-10] VITALS (10 sets, daily range): BP systolic 125–131; BP diastolic 67–78; PULSE 66–79; RESP 16–19; TEMP 36.2–36.7; O2SAT 95–98
[2023-08-10 00:34] LABS: Amphetamine Screen Urine Negative (Negative); Barbiturate Screen Urine Negative (Negative); Benzodiazepines Screen Urine Negative (Negative); Cannabinoid Screen Urine Positive (Negative); Cocaine Screen Urine Negative (Negative); Methadone Screen Urine Negative (Negative); Opiate Screen Urine Positive (Negative); Phencyclidine Screen Urine Negative (Negative)
[2023-08-10] MEDS: HYDROmorphone HCL INJ (*CRX) 1 MG/ML SYR 0.5 MG IV PUSH ×3 (01:54→08:50)
[2023-08-10] MEDS: LACTATED RINGERS 1,000 ML 150 ML IV CONT (05:06)
[2023-08-10] MEDS: PIPERACILLIN/TAZ 4.5G/NS 100ML 4.5 GM/100 ML BAG IVPB ×4 (05:07→23:38)
[2023-08-10] MEDS: ONDANSETRON INJ 4 MG/2 ML VIAL IV PUSH (05:14)
[2023-08-10 06:00] LABS: Basophils Percent Auto 0.3 % (0.2-1.2); Eosinophils Absolute Auto 0.1 K/mm3 (0-0.3); Eosinophils Percent Auto 0.8 % (0-4.4); Hemoglobin 12.4 g/dL (12.0-15.0); Immature Granulocyte Absolute 0.05 K/mm3 (0.00-0.031); Immature Granulocyte Percent A 0.5 % (0-0.5); Lymphocytes Absolute Auto 2.02 K/mm3 (0.9-3.2); Lymphocytes Percent Auto 21.1 % (18.3-44.2); Mean Corpuscular HGB Conc 33.5 g/dl (32-36); Mean Corpuscular Hemoglobin 33.7 pg (26-34); Mean Corpuscular Volume 100.5 fl (80-100); Mean Platelet Volume 9.9 fl (7.4-10.4); Monocytes Absolute Auto 0.9 K/mm3 (0.1-0.6); Monocytes Percent Auto 9.6 % (2.6-8.5); Neutrophils Absolute Auto 6.5 K/mm3 (1.3-6.7); Neutrophils Percent Auto 67.7 % (45.5-73.1); Platelet Count Result 287 k/mm3 (150-375); Red Blood Count 3.68 M/mm3 (4.2-5.4); Red Cell Distribution Width 14.2 % (11.5-14.5); White Blood Count 9.6 K/mm3 (4.5-10.0)
[2023-08-10 06:10] LABS: Glucose Point of Care 68 mg/dl (65-105)
[2023-08-10 06:12] LABS: Alanine Aminotransferase 19 U/L (6-35); Albumin Level 3.6 g/dL (3.5-5.1); Alkaline Phosphatase 73 U/L (38-126); Anion Gap 12 mmol/L (4-12); Aspartate Amino Transferase 43 U/L (14-36); Bilirubin,Total 1.4 mg/dL (0.2-1.3); Blood Urea Nitrogen 9 mg/dL (7-17); Calcium 8.4 mg/dL (8.4-10.2); Carbon Dioxide 16 mmol/L (22-30); Chloride 107 mmol/L (98-107); Estimated CRCL calculation 51 ml/min; Estimated Glomerular Filt Rate > 60; Glucose 73 mg/dL (65-110); Potassium 3.4 mmol/L (3.4-5.0); Sodium 135 mmol/L (137-145)
[2023-08-10 06:13] LABS: Lactic Acid Reflex 0.7 mmol/L (0.7-2.0)
[2023-08-10 06:29] LABS: Procalcitonin 0.1 ng/mL
[2023-08-10 08:29] LABS: Glucose Point of Care 66 mg/dl (65-105)
[2023-08-10] MEDS: NICOTINE (*PBKC) 21 MG PATCH 1 PATCH TRANSDERM (08:39)
[2023-08-10] MEDS: PANTOPRAZOLE SODIUM IV 40 MG VIAL IV PUSH ×2 (08:39→21:14)
--- NOTE | 2023-08-10 10:40 | P.CONGI_ITS ---
I, Ricky Shell MD, have provided a substantive portion of the care of this patient and discussed the patient with my Nurse Practitioner. I have reviewed any new relevant radiographic and laboratory results including medications. I agree with her documentation as noted below.?I personally performed the medical decision making and much of the history and exam for this encounter. briefly, she is known to use with history of nausea, ibs with previous egd 2019 with gastritis, then MRCP 2020 no major findings, incidental finding of aorta aneurysm followed by vascular, also smoker/copd. She was seen in office, had normal liver enzymes and plan was to get EGD as outpatient but more nausea. CT scan showed 2 cm pancreatic mass with liver mets, mild elevated bili. We ordered liver biopsy by IR and also oncology evaluation. She will get port-a-cath, plan to start palliative chemotherapy. If liver biopsy confirms malignancy probably does not need EUS pancreas anymore. PPI, antiemetics prn. Assessment and Plan Assessment and plan (1) Colitis: Code(s): K52.9 - Noninfective gastroenteritis and colitis, unspecified Status: Acute Assessment and Plan: Tuesday with diarrhea and bilateral lower abdominal cramping, likely explains the CT with sigmoid thickening, concern for colitis. WBC is normal. This is improving. -Last colonoscopy in 2021 with colon polyps, tics, and large hemorrhoids. -Stool culture and C diff to be obtained -Zosyn IV, continue antibiotics 10 days at d/c -Supportive tx. (2) Pancreatic lesion: Code(s): K86.9 - Disease of pancreas, unspecified Status: Acute Assessment and Plan: -2.0 cm mass noted at pancreatic tail with upstream dilation of pancreatic duct, concerning for primary adenocarcinoma along with 5 masses on liver concerning for mets. -T bili elevated 1.4, alk phos normal -This likely explain chronic LUQ pain and nausea. -She will need EGD/EUS at tertiary center of pancreatic mass, will arrange this for outpatient. -CA 19-9 to be obtained -Will consult Dr. Garcia with oncology (3) Liver masses: Code(s): R16.0 - Hepatomegaly, not elsewhere classified Status: Acute Assessment and Plan: -Concern from mets, primary site pancreatic adenocarcinoma -Will order liver bx of mets with radiology if they can do while inpatient -Oncology consult (4) Elevated liver enzymes: Code(s): R74.8 - Abnormal levels of other serum enzymes Status: Acute Assessment and Plan: -T bili and ast elevation -Likely from liver mets and pancreatic mass and probably pancreatic dilation -Monitor (5) Nausea and vomiting: Code(s): R11.2 - Nausea with vomiting, unspecified Status: Acute Assessment and Plan: Has chronic nausea that has worsened. EGD outpatient PPI BID Supportive tx with Zofran and will add compazine PRN (6) Gastritis: Code(s): K29.70 - Gastritis, unspecified, without bleeding Status: Acute Assessment and Plan: Continue PPI BID (7) Aneurysm of aorta: Code(s): I71.9 - Aortic aneurysm of unspecified site, without rupture Status: Acute (8) Tobacco abuse: Code(s): Z72.0 - Tobacco use Status: Acute GI Consult Note Consult date/time: 08/10/23 10:10 Reason for consult: colitis HPI: Enriqueta Pisano is a 67 year old female ask be receding at the request of the hospitalist for colitis, and nausea and vomiting. She had been having worsening left upper quadrant pain with radiation to the left side of back since March but worsen
--- NOTE | 2023-08-10 10:40 | WPDGICN ---
Assessment and Plan Assessment and plan (1) Colitis: Code(s): K52.9 - Noninfective gastroenteritis and colitis, unspecified Status: Acute Assessment and Plan: Tuesday with diarrhea and bilateral lower abdominal cramping, likely explains the CT with sigmoid thickening, concern for colitis. WBC is normal. This is improving. -Last colonoscopy in 2021 with colon polyps, tics, and large hemorrhoids. -Stool culture and C diff to be obtained -Zosyn IV, continue antibiotics 10 days at d/c -Supportive tx. (2) Pancreatic lesion: Code(s): K86.9 - Disease of pancreas, unspecified Status: Acute Assessment and Plan: -2.0 cm mass noted at pancreatic tail with upstream dilation of pancreatic duct, concerning for primary adenocarcinoma along with 5 masses on liver concerning for mets. -T bili elevated 1.4, alk phos normal -This likely explain chronic LUQ pain and nausea. -She will need EGD/EUS at tertiary center of pancreatic mass, will arrange this for outpatient. -CA 19-9 to be obtained -Will consult Dr. Garcia with oncology (3) Liver masses: Code(s): R16.0 - Hepatomegaly, not elsewhere classified Status: Acute Assessment and Plan: -Concern from mets, primary site pancreatic adenocarcinoma -Will order liver bx of mets with radiology if they can do while inpatient -Oncology consult (4) Elevated liver enzymes: Code(s): R74.8 - Abnormal levels of other serum enzymes Status: Acute Assessment and Plan: -T bili and ast elevation -Likely from liver mets and pancreatic mass and probably pancreatic dilation -Monitor (5) Nausea and vomiting: Code(s): R11.2 - Nausea with vomiting, unspecified Status: Acute Assessment and Plan: Has chronic nausea that has worsened. EGD outpatient PPI BID Supportive tx with Zofran and will add compazine PRN (6) Gastritis: Code(s): K29.70 - Gastritis, unspecified, without bleeding Status: Acute Assessment and Plan: Continue PPI BID (7) Aneurysm of aorta: Code(s): I71.9 - Aortic aneurysm of unspecified site, without rupture Status: Acute (8) Tobacco abuse: Code(s): Z72.0 - Tobacco use Status: Acute GI Consult Note Consult date/time: 08/10/23 10:10 Reason for consult: colitis HPI: Enriqueta Pisano is a 67 year old female ask be receding at the request of the hospitalist for colitis, and nausea and vomiting. She had been having worsening left upper quadrant pain with radiation to the left side of back since March but worsened nausea as of Tuesday with intermittent vomiting. The nausea and left upper quadrant abdominal pain would not worsened with eating. She was set up for an EGD outpatient, scheduled on August 15 for the symptoms after she was seen by Dr. Dietrich in June for LUQ pain and nausea. On Tuesday morning she began having bilateral lower abdominal cramping and diarrhea, cramping did not resolve with bowel movements nor improve with Levsin. Noted small amount of blood per rectum, not worse than what she typically bleeds with known hemorrhoids per patient. Denies any sick or ill contacts or recent antibiotic use. Denies any NSAIDs. Was able to keep orange juice, 120 oz down this morning but states apple juice was too sweet. She is taking Zofran and helps minimally. Previously states Compazine had helped. She has had no appetite and has not lost any weight. Denies any worsening GERD, dysphagia odynophagia or hematemesis. Denies any scleral icterus or jaundice. CT of the abdomen and pelvis with contrast with a 2 cm mass at the tail of the pancreas with pancreatic duct dilation upstream from the mass and fat stranding around the tail the pancreas along with 5 masses in the liver measuring up to 19 mm, primary concern for adenocarcinoma of the pancreas with liver metastasis along with wall thickening of the sigmoid colon which could represent colitis (recs
--- NOTE | 2023-08-10 11:11 | ECG_ITS ---
SEE SCANNED COPY FOR CONFIRMED REPORT MTDD
[2023-08-10] MEDS: PROCHLORPERAZINE EDISYLATE 10 MG/2 ML VIAL IV PUSH (11:25)
[2023-08-10 11:49] LABS: Troponin I 0.019 ng/mL (0.000-0.034)
[2023-08-10 12:20] LABS: Glucose Point of Care 88 mg/dl (65-105)
--- NOTE | 2023-08-10 12:33 | PDONCCN ---
HPI - Date of Consult Date/Time: 08/10/23 12:33 Requesting Physician: Anahy Umaña MD Primary Care Provider: Anaya De La Torre MD - Consult Narrative Reason for consult: Metastatic pancreatic cancer Narrative: Enriqueta Pisano is a 67 year old female with history of hypertension, gastritis, COPD, peripheral arterial disease and smoking half pack per day for more than 30 years duration came into the hospital with worsening abdominal pain nausea and diarrhea. Patient had previous colonoscopy in 2021 done that showed diverticulosis and internal hemorrhoids. EGD done in February 2020 showed gastritis and hiatal hernia. CT scan abdomen and pelvis was performed on August 08 showed 2 cm pancreatic mass consistent with pancreatic adenocarcinoma along with multiple liver masses consistent with metastatic disease. Clinically she is complaining of abdominal pain midepigastric region with radiation to the back along with nausea and intermittent diarrhea. She denies any recent weight loss but has lost weight 2 years ago. No other new complaints. She lives at home with her and take care of the autistic grand child. Review of Systems - Review of Systems All systems reviewed & are unremarkable except as noted in HPI and bel - Neurologic Reports hearing normal, Denies headache(s), Denies weakness PMFSH Medical History: Medical History (Last Reviewed 08/09/23 @ 01:31 by Luis Lovell MD) Abdominal pain Adenomatous colon polyp Aneurysm of aorta Anxiety Breast cancer screening Chronic LUQ pain Colon cancer screening COPD mixed type Current smoker Early satiety Erosive gastritis Gastritis History of pancreatitis History of vaginal delivery IBS (irritable colon syndrome) Narcotic dependence Nausea Need for pneumococcal vaccination Osteoarthritis of back Osteoporosis Peripheral vascular disease of extremity with claudication Primary hypertension Pulmonary emphysema Screening mammogram, encounter for Spinal stenosis Thrush Tobacco abuse Trigger finger of thumb Urinary incontinence Weight loss Surgical History: Surgical History (Last Reviewed 08/09/23 @ 01:31 by Luis Lovell MD) History of ankle surgery History of appendectomy History of cholecystectomy History of hysterectomy History of release of tendon History of tonsillectomy and adenoidectomy Family History: Family History (Last Updated 08/09/23 @ 18:21 by Richa Chen RN) Other Unknown family medical history - Social History Social History: Social History (Last Reviewed 08/09/23 @ 01:31 by Luis Lovell MD) Gender Identity: Gender identity (if verbalized by the patient): Female Alcohol Use: Alcohol intake: never Substance Use: Other substance usage details: perscription only Others: Spiritual care concerns: No Agree to blood products: Yes Living Arrangements: Living arrangements: with family Oppucation/Education: Occupation/Education: occupation Smoking Status: Smoking status: Current every day smoker Second hand tobacco smoke exposure: Yes Smoking Pack-years: Smoking packs per day: 1 Smoking cigarettes per day: 20.0 Years smoked: 50 Smoking pack-years: 50.00 Social Determinants of Health: Do You Feel Safe in your Home?: Yes Has the Lack of Transportation Kept You From Medical Appointments or From Getting Medications?: No Within the Past 12 Months, Were You Worried Whether Your Food Would Run Out Before You Got Money to Buy More?: Never True What is Your Housing Situation Today?: I Have Housing Are You Worried That in the Next 2 Months, You May Not Have Your Own Housing to Live In?: No Do You Have Trouble Paying Your Heating Or Electricity Bill?: No Do You Have Trouble Paying For Medicines?: No Are You Currently Unemployed and Looking for Work?: No Highest Level of Education Complet
[2023-08-10] MEDS: HYDROcodone/acetaminophen (*CRX) 7.5-325 MG TABLET 1 TAB PO ×3 (12:37→21:14)
--- NOTE | 2023-08-10 13:58 | PC.NURSE ---
Patient to US per stretcher.
--- NOTE | 2023-08-10 14:42 | PM.IMPN ---
Progress Note: A&P Assessment and Plan (1) Abdominal pain: Code(s): R10.9 - Unspecified abdominal pain Status: Inactive Assessment and Plan: EGD February 2020 demonstrated gastritis, hiatal hernia. MRCP and gastric emptying study unremarkable in 2020. Colonoscopy in 2021 demonstrated diverticulosis and internal hemorrhoids. CT abdomen and pelvis 2 cm mass in the pancreas consistent with primary adeno carcinoma and liver masses consistent with metastatic disease plus colitis. Plan for liver biopsy today. Analgesics as needed IV LR @75 cc/hr (2) Pancreatic lesion: Code(s): K86.9 - Disease of pancreas, unspecified Status: Acute Assessment and Plan: CT abdomen and pelvis 2 cm mass in the pancreas consistent with primary adeno carcinoma and liver masses consistent with metastatic disease. GI consulted. Oncology consulted. Liver biopsy ordered for today. CA 19-9 pending Interested in palliative chemotherapy. Will have Mediport placed while patient is here. (3) Colitis: Code(s): K52.9 - Noninfective gastroenteritis and colitis, unspecified Status: Acute Assessment and Plan: CT abdomen pelvis showing possible colitis. Patient was experiencing diarrhea intermittently before getting to the ED. IV Zosyn initiated on 08/09/23 IV LR @ 75 cc/hr [place] diet (4) Gastritis: Code(s): K29.70 - Gastritis, unspecified, without bleeding Status: Acute Assessment and Plan: Pantoprazole 40 mg IV b.i.d. (5) Aneurysm of aorta: Code(s): I71.9 - Aortic aneurysm of unspecified site, without rupture Status: Acute Assessment and Plan: 3.7 cm fusiform inferior aortic aneurysm. Continue to monitor (6) Tobacco abuse: Code(s): Z72.0 - Tobacco use Status: Acute Assessment and Plan: nicotine. Subjective Date/time seen: 08/10/23 14:42 Interval history: GI and oncology consulted on the case. plan for liver biopsy today. According to oncology is no patient's interested in palliative chemotherapy she may need MediPort placed well hospitalize. Her abdominal pain is much improved. She denies nausea or vomiting. She did have diarrhea prior to hospitalization but this is since improved as well. Continue pain management. Exam Narrative: GENERAL: Comfortable, no acute distress HENMT: moist mucous membranes EYES: EOM intact b/l NECK: no lymphadenopathy RESPIRATORY: distant lung sounds, no increased respiratory effort CARDIO: Regular rate and rhythm GI: soft, mild tenderness, bowel sounds present SKIN/EXTREMITIES: no rashes, no edema, no redness or tenderness NEURO: PROM intact, answers questions appropriately, A&O x4 Objective Data Vital Signs Vital Signs: Vital Signs - 24 hr 08/09/23 15:14 08/09/23 16:04 08/09/23 17:23 Temperature 97.6 F Pulse Rate 81 82 Respiratory Rate 15 15 20 Blood Pressure 146/74 H 150/70 H Pulse Oximetry 99 96 98 Oxygen Delivery 08/09/23 17:54 08/09/23 20:17 08/09/23 20:00 Temperature 99.0 F Pulse Rate 90 77 77 Respiratory Rate 18 18 18 Blood Pressure 156/91 H 136/53 L Pulse Oximetry 99 100 100 Oxygen Delivery Room Air 08/10/23 00:00 08/10/23 04:16 08/10/23 04:00 Temperature 97.8 F Pulse Rate 75 79 76 Respiratory Rate 19 Blood Pressure 131/78 Pulse Oximetry 96 Oxygen Delivery 08/10/23 08:51 08/10/23 11:12 08/10/23 11:00 Temperature 97.2 F L Pulse Rate 75 Respiratory Rate 18 Blood Pressure 125/67 Pulse Oximetry 98 98 Oxygen Delivery Room Air Room Air 08/10/23 08:04 08/10/23 12:05 Temperature Pulse Rate 67 66 Respiratory Rate Blood Pressure Pulse Oximetry Oxygen Delivery Intake/Output Intake/Output: Intake & Output 08/07/23 08/08/23 08/09/23 08/10/23 23:59 23:59 23:59 23:59 Intake Total 1000 1200 Output Total 400 Balance 1000 800 Me
[2023-08-10 17:31] LABS: Glucose Point of Care 76 mg/dl (65-105)
[2023-08-10] MEDS: LACTATED RINGERS 1,000 ML 75 ML IV CONT (18:56)
--- NOTE | 2023-08-10 19:00 | WPDCN ---
Assessment and Plan Assessment and plan (1) Liver masses: Code(s): R16.0 - Hepatomegaly, not elsewhere classified Status: Acute Assessment and Plan: Appears likely to be metastatic disease from a primary pancreatic tumor. Oncology has seen the patient and has requested placement of delia catheter before discharge for likely administration of chemotherapy in the very near future. We will plan on placing a delia catheter on Saturday August 12, 2023. Risks, benefits, indications, and expected outcomes were discussed in detail with the patient and/or family. They understand and I have answered all other questions. They wished to proceed with surgery as outlined above. Specific risk of bleeding requiring a blood transfusion and possible iatrogenic pneumothorax with need for placement of a chest tube was discussed with the patient. She understands and wishes to proceed. (2) Pancreatic lesion: Code(s): K86.9 - Disease of pancreas, unspecified Status: Acute Assessment and Plan: Likely primary site of tumor. Biopsy results are still pending. HPI Data of Consult Date/Time: 08/10/23 19:00 Requesting Physician: Anahy Umaña MD Primary Care Provider: Anaya De La Torre MD Consult Narrative Reason for consult: Metastatic pancreatic adenocarcinoma, need for delia catheter placement to Narrative: Enriqueta Pisano is a 67 year old female who was recently admitted to [facility] for abdominal pain. She had a CT scan abdomen pelvis performed which showed a 2cm pancreatic mass was lesions in the liver which was consistent with metastatic disease. She underwent a biopsy of the pancreatic mass under ultrasound guidance today and the pathology results are pending. However she has been seen by medical oncology and they feel that the patient will need placement of a delia catheter for administration of chemotherapy in the near future. They would like a delia catheter placement during this admission before she is discharged. The patient has never had placement of a central line or delia catheter in the past. She has never fractured her collarbone. Review of Systems Review of Systems: The remainder of the review of systems to include constitutional, HEENT, cardiovascular, respiratory, GI, , integumentary, musculoskeletal, endocrine, immunologic, hematologic, psychiatric, and neurologic are all negative except for which is mentioned above in the HPI. [facility] Past Medical History Medical History Abdominal pain Adenomatous colon polyp Aneurysm of aorta Anxiety Breast cancer screening Chronic LUQ pain Colon cancer screening COPD mixed type Current smoker Early satiety Erosive gastritis Gastritis History of pancreatitis History of vaginal delivery IBS (irritable colon syndrome) Narcotic dependence Nausea Need for pneumococcal vaccination Osteoarthritis of back Osteoporosis Peripheral vascular disease of extremity with claudication Primary hypertension Pulmonary emphysema Screening mammogram, encounter for Spinal stenosis Thrush Tobacco abuse Trigger finger of thumb Urinary incontinence Weight loss Surgical History Surgical History History of ankle surgery History of appendectomy History of cholecystectomy History of hysterectomy History of release of tendon History of tonsillectomy and adenoidectomy Family History Family History Other Unknown family medical history Social History Social History Smoking packs per day: 1 Smoking cigarettes per day: 20.0 Years smoked: 50 Smoking pack-years: 50.00 Smoking status: Current every day smoker Second hand tobacco smoke exposure: Yes Alcohol intake: never Other substance usage details: perscription onl
[2023-08-10 21:58] LABS: Glucose Point of Care 164 mg/dl (65-105)
[2023-08-10 22:44] LABS: Toxigenic C. Diff NEGATIVE (NEGATIVE)
[2023-08-11] VITALS (9 sets, daily range): BP systolic 152–155; BP diastolic 75–89; PULSE 67–78; RESP 14–20; TEMP 36.5–36.8; O2SAT 91–98
[2023-08-11 00:21] LABS: Glucose Point of Care 153 mg/dl (65-105)
[2023-08-11] MEDS: HYDROcodone/acetaminophen (*CRX) 7.5-325 MG TABLET 1 TAB PO ×4 (01:47→18:17)
[2023-08-11 05:56] LABS: Hematocrit 34.4 % (37.0-47.0); Hemoglobin 11.7 g/dL (12.0-15.0); Mean Corpuscular Hemoglobin 33.6 pg (26-34); Mean Corpuscular Volume 98.9 fl (80-100); Mean Platelet Volume 9.8 fl (7.4-10.4); Platelet Count Result 235 k/mm3 (150-375); Red Blood Count 3.48 M/mm3 (4.2-5.4); White Blood Count 4.9 K/mm3 (4.5-10.0)
[2023-08-11] MEDS: PIPERACILLIN/TAZ 4.5G/NS 100ML 4.5 GM/100 ML BAG IVPB ×4 (06:08→22:58)
[2023-08-11 06:19] LABS: Glucose Point of Care 102 mg/dl (65-105)
[2023-08-11 06:28] LABS: Alanine Aminotransferase 18 U/L (6-35); Albumin Level 3.1 g/dL (3.5-5.1); Alkaline Phosphatase 57 U/L (38-126); Anion Gap 6 mmol/L (4-12); Aspartate Amino Transferase 37 U/L (14-36); Bilirubin,Total 0.8 mg/dL (0.2-1.3); Blood Urea Nitrogen 6 mg/dL (7-17); Calcium 8.3 mg/dL (8.4-10.2); Carbon Dioxide 23 mmol/L (22-30); Chloride 106 mmol/L (98-107); Estimated CRCL calculation 51 ml/min; Estimated Glomerular Filt Rate > 60; Glucose 102 mg/dL (65-110); Sodium 135 mmol/L (137-145)
[2023-08-11] MEDS: POTASSIUM CHLORIDE 20 MEQ ER TABLET 40 MEQ PO (06:46)
[2023-08-11] MEDS: FLUTICASONE/UMECLIDIN/VILANTER 100-62.5-25 MCG ELLIPTA 1 PUFF INHALATION (07:24)
[2023-08-11 08:25] LABS: Glucose Point of Care 104 mg/dl (65-105)
[2023-08-11] MEDS: POTASSIUM CHLORIDE INJ 40 MEQ in SODIUM CHLORIDE 0.9% IV 500 ML 130 MEQ IVPB (08:30)
[2023-08-11] MEDS: PANTOPRAZOLE SODIUM IV 40 MG VIAL IV PUSH ×2 (08:31→20:41)
[2023-08-11] MEDS: amLODIPine BESYLATE 5 MG TABLET PO (08:31)
[2023-08-11] MEDS: NICOTINE (*PBKC) 21 MG PATCH 1 PATCH TRANSDERM (08:31)
--- NOTE | 2023-08-11 10:12 | WPDGIPROGNO ---
Progress Note: A&P Assessment and Plan (1) Pancreatic mass: Code(s): K86.89 - Other specified diseases of pancreas Status: Acute Assessment and Plan: most likely pancreatic adenocarcinoma with mets to liver already had liver bx- if biopsy shows cancer then probably patient does not need EUS oncology on board. She will get port-a-cath and start chemotherapy soon (2) Metastasis to liver: Code(s): C78.7 - Secondary malignant neoplasm of liver and intrahepatic bile duct Status: Acute (3) Nausea and vomiting: Code(s): R11.2 - Nausea with vomiting, unspecified Status: Acute Assessment and Plan: antiemetics (4) Elevated liver enzymes: Code(s): R74.8 - Abnormal levels of other serum enzymes Status: Acute Assessment and Plan: from malignancy (5) IBS (irritable colon syndrome): Qualifiers: Irritable bowel syndrome type: with both diarrhea and constipation Qualified Code(s): K58.2 - Mixed irritable bowel syndrome Code(s): K58.9 - Irritable bowel syndrome without diarrhea Status: Acute Subjective Date/time seen: 08/11/23 10:12 Interval history: no major changes, still with nausea Review of Systems Review of Systems: All systems reviewed & are unremarkable except as noted in HPI and below Exam Const: General: cooperative, healthy appearing, comfortable and no acute distress Orientation/consciousness: oriented to person, oriented to place and oriented to time HENMT: Head: normal to inspection Face/Nose/Sinus: Normal nares present Eyes: General: appearance normal, both eyes and all related structures Neck: Neck: no JVD Chest: Chest palpation & inspection: normal inspection of the chest Resp: Effort & Inspection: normal respiratory effort and able to speak in complete sentences Auscultation: clear to auscultation bilaterally Cardio: Rate: regular rate Rhythm: regular rhythm GI: Inspection: normal to inspection GI Palp: Yes Soft to palpation and Yes No hepatosplenomegaly present Auscultation: normal bowel sounds Skin: General skin exam: normal color and no rashes or lesions noted Neuro: General: oriented to person, oriented to place and oriented to time Speech: normal speech Extrem: General: normal to inspection Psych: Mental Status: mental status grossly normal Objective Data Vital Signs Vital Signs: Vital Signs - 24 hr 08/10/23 11:12 08/10/23 11:00 08/10/23 12:05 Temperature 97.2 F L Pulse Rate 75 66 Respiratory Rate 18 Blood Pressure 125/67 Pulse Oximetry 98 98 Oxygen Delivery Room Air 08/10/23 16:04 08/10/23 20:00 08/10/23 20:00 Temperature Pulse Rate 69 72 69 Respiratory Rate 18 Blood Pressure Pulse Oximetry 98 Oxygen Delivery Room Air 08/10/23 22:00 08/11/23 00:00 08/11/23 04:00 Temperature 98.1 F Pulse Rate 70 75 73 Respiratory Rate 16 Blood Pressure 131/78 Pulse Oximetry 95 Oxygen Delivery 08/11/23 06:00 08/11/23 07:25 08/11/23 07:25 Temperature 98.2 F Pulse Rate 67 71 71 Respiratory Rate 14 18 18 Blood Pressure 155/75 H Pulse Oximetry 92 91 Oxygen Delivery Room Air Intake/Output Intake/Output: Intake & Output 08/08/23 08/09/23 08/10/23 08/11/23 23:59 23:59 23:59 23:59 Intake Total 1000 2640 500 Output Total 2450 700 Balance 1000 190 -200 Meds/Results Medications: Active Medications Generic Name Dose Route Start Last Admin Trade Name Freq PRN Reason Stop Dose Admin Hydrocodone Bitart/Acetaminophen 1 tab 08/10/23 11:04 08/11/23 06:08 Hydrocodone/Acetaminophen (*Crx) 7.5-325 Mg Tablet PO 1 tab Q4H PRN Administration SEVERE PAIN 7-10 Amlodipine Besylate 5 mg 08/11/23 09:00 08/11/23 08:31 Amlodipine Besylate 5 Mg Tablet PO 5 mg DAILY ERIC Administration Dicyclomine HCl 20 mg 08/09/23 20:51 Dicyclomine Hcl Inj 20 Mg/2 Ml Vial IM QID PRN Cramping Fluticasone/Ume
[2023-08-11] MEDS: ONDANSETRON INJ 4 MG/2 ML VIAL IV PUSH ×2 (10:37→20:41)
--- NOTE | 2023-08-11 11:30 | PM.IMPN ---
Progress Note: A&P Assessment and Plan (1) Abdominal pain: Code(s): R10.9 - Unspecified abdominal pain Status: Inactive Assessment and Plan: EGD February 2020 demonstrated gastritis, hiatal hernia. MRCP and gastric emptying study unremarkable in 2020. Colonoscopy in 2021 demonstrated diverticulosis and internal hemorrhoids. CT abdomen and pelvis 2 cm mass in the pancreas consistent with primary adeno carcinoma and liver masses consistent with metastatic disease plus colitis. Liver biopsy on 08/09 -- pathology pending. Analgesics as needed IV LR discontinued. Eating and drinking without problems. (2) Pancreatic lesion: Code(s): K86.9 - Disease of pancreas, unspecified Status: Acute Assessment and Plan: CT abdomen and pelvis 2 cm mass in the pancreas consistent with primary adeno carcinoma and liver masses consistent with metastatic disease. GI consulted. Oncology consulted. Liver biopsy on 08/09 -- pathology pending CA 19-9 pending Interested in palliative chemotherapy. Mediport placement planned for tomorrow. (3) Colitis: Code(s): K52.9 - Noninfective gastroenteritis and colitis, unspecified Status: Acute Assessment and Plan: CT abdomen pelvis showing possible colitis. Patient was experiencing diarrhea intermittently before getting to the ED. IV Zosyn initiated on 08/09/23 IV LR discontinued. [place] diet (4) Gastritis: Code(s): K29.70 - Gastritis, unspecified, without bleeding Status: Acute Assessment and Plan: Pantoprazole 40 mg IV b.i.d. (5) Aneurysm of aorta: Code(s): I71.9 - Aortic aneurysm of unspecified site, without rupture Status: Acute Assessment and Plan: 3.7 cm fusiform inferior aortic aneurysm. Continue to monitor (6) Tobacco abuse: Code(s): Z72.0 - Tobacco use Status: Acute Assessment and Plan: nicotine. Subjective Date/time seen: 08/11/23 11:30 Interval history: Patient states that she is feeling better today. She is still having some nausea but no vomiting. Her abdominal pain is controlled with pain medication. The plan is to place MediPort tomorrow. She did have a low potassium today and this is likely due to her ongoing diarrhea and or fluids that were given. Will place as necessary. Fluids discontinued. Patient is eating and drinking appropriately. Exam Narrative: GENERAL: Comfortable, no acute distress HENMT: moist mucous membranes, ulcerations around patients mouth EYES: EOM intact b/l NECK: no lymphadenopathy RESPIRATORY: distant lung sounds, no increased respiratory effort CARDIO: Regular rate and rhythm GI: soft, mild tenderness, bowel sounds present SKIN/EXTREMITIES: no rashes, no edema, no redness or tenderness NEURO: PROM intact, answers questions appropriately, A&O x4 Objective Data Vital Signs Vital Signs: Vital Signs - 24 hr 08/10/23 12:05 08/10/23 16:04 08/10/23 20:00 Temperature Pulse Rate 66 69 72 Respiratory Rate Blood Pressure Pulse Oximetry Oxygen Delivery 08/10/23 20:00 08/10/23 22:00 08/11/23 00:00 Temperature 98.1 F Pulse Rate 69 70 75 Respiratory Rate 18 16 Blood Pressure 131/78 Pulse Oximetry 98 95 Oxygen Delivery Room Air 08/11/23 04:00 08/11/23 06:00 08/11/23 07:25 Temperature 98.2 F Pulse Rate 73 67 71 Respiratory Rate 14 18 Blood Pressure 155/75 H Pulse Oximetry 92 91 Oxygen Delivery Room Air 08/11/23 07:25 Temperature Pulse Rate 71 Respiratory Rate 18 Blood Pressure Pulse Oximetry Oxygen Delivery Intake/Output Intake/Output: Intake & Output 08/08/23 08/09/23 08/10/23 08/11/23 23:59 23:59 23:59 23:59 Intake Total 1000 2640 1590 Output Total 2450 700 Balance 1000 190 890 Meds/Results Medications: Active Medications Generic Name Dose Route Start Last Admin Trade Name Alonq P
[2023-08-11 11:38] LABS: Lactoferrin, Stool COMMENT:
[2023-08-11] MEDS: PROCHLORPERAZINE EDISYLATE 10 MG/2 ML VIAL IV PUSH (13:26)
[2023-08-11 16:30] LABS: Potassium 3.7 mmol/L (3.4-5.0)
[2023-08-11] MEDS: HYDROmorphone HCL INJ (*CRX) 1 MG/ML SYR 0.5 MG IV PUSH (22:53)
[2023-08-12] VITALS (14 sets, daily range): BP systolic 128–161; BP diastolic 64–88; PULSE 63–86; RESP 15–21; TEMP 36.1–37.2; O2SAT 93–100
[2023-08-12] MEDS: HYDROcodone/acetaminophen (*CRX) 7.5-325 MG TABLET 1 TAB PO ×4 (01:58→18:50)
[2023-08-12 05:51] LABS: Hematocrit 36.4 % (37.0-47.0); Hemoglobin 12.2 g/dL (12.0-15.0); Mean Corpuscular HGB Conc 33.5 g/dl (32-36); Mean Corpuscular Hemoglobin 33.6 pg (26-34); Mean Corpuscular Volume 100.3 fl (80-100); Mean Platelet Volume 9.8 fl (7.4-10.4); Platelet Count Result 262 k/mm3 (150-375); Red Blood Count 3.63 M/mm3 (4.2-5.4); Red Cell Distribution Width 14.2 % (11.5-14.5); White Blood Count 6.7 K/mm3 (4.5-10.0)
[2023-08-12 06:03] LABS: Anion Gap 3 mmol/L (4-12); Blood Urea Nitrogen 5 mg/dL (7-17); Calcium 8.7 mg/dL (8.4-10.2); Carbon Dioxide 28 mmol/L (22-30); Chloride 105 mmol/L (98-107); Estimated CRCL calculation 51 ml/min; Estimated Glomerular Filt Rate > 60; Glucose 103 mg/dL (65-110); Potassium 3.4 mmol/L (3.4-5.0); Sodium 136 mmol/L (137-145)
[2023-08-12] MEDS: PIPERACILLIN/TAZ 4.5G/NS 100ML 4.5 GM/100 ML BAG IVPB (06:15)
[2023-08-12 07:38] LABS: CA 19-9 13630 U/mL (<34)
[2023-08-12] MEDS: FLUTICASONE/UMECLIDIN/VILANTER 100-62.5-25 MCG ELLIPTA 1 PUFF INHALATION (08:40)
[2023-08-12] MEDS: amLODIPine BESYLATE 5 MG TABLET PO (10:21)
[2023-08-12] MEDS: PANTOPRAZOLE SODIUM IV 40 MG VIAL IV PUSH ×2 (10:22→20:27)
[2023-08-12] MEDS: NICOTINE (*PBKC) 21 MG PATCH 1 PATCH TRANSDERM (10:23)
--- NOTE | 2023-08-12 10:57 | WPDHPUPDATE1 ---
History and Physical Update Update Date/Time: 08/12/23 10:57 History and Physical has been reviewed, including an updated exam of the patient. There are NO changes in the patient's condition. Risks, benefits, and alternatives have been discussed and questions answered. Patient agrees to proceed with procedure.
[2023-08-12] MEDS: LACTATED RINGERS 1,000 ML 30 ML IV CONT (12:30)
--- NOTE | 2023-08-12 12:57 | PM.IMPN ---
Progress Note: A&P Assessment and Plan (1) Abdominal pain: Code(s): R10.9 - Unspecified abdominal pain Status: Inactive Assessment and Plan: EGD February 2020 demonstrated gastritis, hiatal hernia. MRCP and gastric emptying study unremarkable in 2020. Colonoscopy in 2021 demonstrated diverticulosis and internal hemorrhoids. CT abdomen and pelvis 2 cm mass in the pancreas consistent with primary adeno carcinoma and liver masses consistent with metastatic disease plus colitis. Liver biopsy on 08/09 -- pathology pending. Analgesics as needed IV LR discontinued. Eating and drinking without problems. (2) Pancreatic lesion: Code(s): K86.9 - Disease of pancreas, unspecified Status: Acute Assessment and Plan: CT abdomen and pelvis 2 cm mass in the pancreas consistent with primary adeno carcinoma and liver masses consistent with metastatic disease. GI consulted. Oncology consulted. Liver biopsy on 08/09 -- pathology pending CA 19-9 pending Interested in palliative chemotherapy. Mediport placement today. (3) Colitis: Code(s): K52.9 - Noninfective gastroenteritis and colitis, unspecified Status: Acute Assessment and Plan: CT abdomen pelvis showing possible colitis. Patient was experiencing diarrhea intermittently before getting to the ED. IV Zosyn initiated on 08/09/23, transitioned to Augmentin on 08/11 IV LR discontinued. [place] diet (4) Gastritis: Code(s): K29.70 - Gastritis, unspecified, without bleeding Status: Acute Assessment and Plan: Pantoprazole 40 mg IV b.i.d. (5) Aneurysm of aorta: Code(s): I71.9 - Aortic aneurysm of unspecified site, without rupture Status: Acute Assessment and Plan: 3.7 cm fusiform inferior aortic aneurysm. Continue to monitor (6) Tobacco abuse: Code(s): Z72.0 - Tobacco use Status: Acute Assessment and Plan: nicotine. Subjective Date/time seen: 08/12/23 12:57 Interval history: Plan for port placement today. Abdominal pain is improving. If nausea and abdominal pain continues to do well she can likely discharge tomorrow. Exam Narrative: GENERAL: Comfortable, no acute distress HENMT: moist mucous membranes, ulcerations around patients mouth EYES: EOM intact b/l NECK: no lymphadenopathy RESPIRATORY: distant lung sounds, no increased respiratory effort CARDIO: Regular rate and rhythm GI: soft, mild tenderness, bowel sounds present SKIN/EXTREMITIES: no rashes, no edema, no redness or tenderness NEURO: PROM intact, answers questions appropriately, A&O x4 Objective Data Vital Signs Vital Signs: Vital Signs - 24 hr 08/11/23 14:00 08/11/23 16:04 08/11/23 21:34 Temperature 97.9 F 97.7 F Pulse Rate 77 73 78 Respiratory Rate 16 20 Blood Pressure 152/78 H 154/89 H Pulse Oximetry 95 98 Oxygen Delivery 08/11/23 20:00 08/12/23 00:00 08/12/23 04:00 Temperature Pulse Rate 69 63 Respiratory Rate Blood Pressure Pulse Oximetry Oxygen Delivery Room Air 08/12/23 06:00 08/12/23 08:41 08/12/23 08:41 Temperature 97.8 F Pulse Rate 72 73 Respiratory Rate 18 20 Blood Pressure 148/73 H Pulse Oximetry 96 95 Oxygen Delivery Room Air Intake/Output Intake/Output: Intake & Output 08/09/23 08/10/23 08/11/23 08/12/23 23:59 23:59 23:59 23:59 Intake Total 1000 2640 3872 500 Output Total 2450 1700 1400 Balance 5909 783 6424 -900 Meds/Results Medications: Active Medications Generic Name Dose Route Start Last Admin Trade Name Freq PRN Reason Stop Dose Admin Hydrocodone Bitart/Acetaminophen 1 tab 08/10/23 11:04 08/12/23 10:27 Hydrocodone/Acetaminophen (*Crx) 7.5-325 Mg Tablet PO 1 tab Q4H PRN Administration SEVERE PAIN 7-10 Amlodipine Besylate 5 mg 08/11/23 09:00 08/12/23 10:21 Amlodipine Besylate 5 Mg Tablet PO 5 mg DAILY FORMERLY [facility], [facility] Admi
--- NOTE | 2023-08-12 13:11 | WPDANESEPPF ---
Anes - Initial Pre Proc Eval Procedure: Operation Date: 08/12/23 13:00 Proposed Procedures p Insertion Eric Cath - Gary Singh MD Date/Time: 08/12/23 13:11 Surgeon: Anahy Umaña MD Pre Op Diagnosis: colitis,new pancreatic and liver lesions Patient Data Age: 67 Gender: F Height: 1.57 m Weight: 49 kg Last Vital Signs Temp 98.9 F 08/12/23 12:45 Pulse 74 08/12/23 12:45 Resp 16 08/12/23 12:45 BP 146/78 H 08/12/23 12:45 Pulse Ox 100 08/12/23 12:45 O2 Del Method Room Air 08/12/23 12:45 Allergies Allergy/AdvReac Type Severity Reaction Status Date / Time metronidazole AdvReac Severe SEVERE Verified 08/12/23 12:54 NAUSEA, VOMITING AND SHAKING morphine AdvReac Severe nausea and Verified 08/12/23 12:54 vomitting meperidine AdvReac Unknown Vomiting Verified 08/12/23 12:54 tramadol AdvReac Unknown vomitting Verified 08/12/23 12:54 Home Medications Medication Instructions Recorded Confirmed Type albuterol sulfate 90 mcg/actuation 2 puff inhalation Q4-6H PRN 12/15/22 08/09/23 Rx aerosol inhaler (ProAir HFA) shortness of breath or wheezing #8 grams fluoxetine 20 mg capsule 20 mg PO DAILY #90 caps 02/13/23 08/09/23 Rx hyoscyamine sulfate 0.125 mg 0.125 mg sublingual QID PRN 03/17/23 08/09/23 Rx sublingual tablet dyspepsia #120 tabs amlodipine 5 mg tablet 5 mg PO DAILY #90 tabs 05/13/23 08/09/23 Rx fluticasone fur. 100 mcg-umeclid 1 inh inhalation DAILY #60 ea 06/15/23 08/09/23 Rx 62.5 mcg-vilant 25 mcg inhalat.powder (Trelegy Ellipta) cimetidine 200 mg tablet (Tagamet 200 mg PO BID #60 tabs 06/30/23 08/09/23 Rx HB) hydrocodone 7.5 mg-acetaminophen 1 tablet PO Q4H PRN pain 08/09/23 08/09/23 History 325 mg tablet ondansetron 4 mg disintegrating 4 mg PO Q8H PRN nausea and 08/09/23 08/09/23 Rx tablet vomiting #10 tabs Laboratory Tests 08/10/23 08/11/23 08/12/23 10:34 16:16 05:29 WBC 6.7 K/mm3 (4.5-10.0) RBC 3.63 L M/mm3 (4.2-5.4) Hgb 12.2 g/dL (12.0-15.0) Hct 36.4 L % (37.0-47.0) MCV 100.3 H fl (80-100) MCH 33.6 pg (26-34) MCHC 33.5 g/dl (32-36) RDW 14.2 % (11.5-14.5) Plt Count 262 k/mm3 (150-375) MPV 9.8 fl (7.4-10.4) Sodium 136 L mmol/L (137-145) Potassium 3.7 mmol/L 3.4 mmol/L (3.4-5.0) (3.4-5.0) Chloride 105 mmol/L (98-107) Carbon Dioxide 28 mmol/L (22-30) Anion Gap 3 L mmol/L (4-12) BUN 5 L mg/dL (7-17) Creatinine 0.70 mg/dL (0.7-1.0) Estim Creat Clear Calc 51 ml/min Estimated GFR > 60 (59 - ) Glucose 103 mg/dL (65-110) Calcium 8.7 mg/dL (8.4-10.2) CA 19-9 Antigen 29285 H U/mL (<34) Patient hx anesthesia problems: none Family hx anesthesia problems: none Results Review: All pre-operative results and documents have been reviewed as part of the pre-operative evaluation. [facility] Past Medical History Medical History (Updated 08/11/23 @ 10:13 by Ricky Shell MD) Abdominal pain Adenomatous colon polyp Aneurysm of aorta Anxiety Breast cancer screening Chronic LUQ pain Colon cancer screening COPD mixed type Current smoker Early satiety Erosive gastritis Gastritis History of pancreatitis History of vaginal delivery IBS (irritable colon syndrome) Metastasis to liver Narcotic dependence Nausea Need for pneumococcal vaccination Osteoarthritis of back Osteoporosis Pancreatic mass Peripheral vascular disease of extremity with claudication Primary hypertension Pulmonary emphysema Screening mammogram, encounter for Spinal stenosis Thrush Tobacco abuse Trigger finger of thumb Urinary incontinence Weight loss Surgical History Surgical History History of ankle surgery History of appendectomy
[2023-08-12] MEDS: ceFAZolin 2 GM/D5W 50 ML 2 GM/50 ML BAG IVPB (14:45)
[2023-08-12] MEDS: BUPivacaine HCL 0.5% PF 30 ML VIAL INFILTRATE (14:59)
[2023-08-12] MEDS: LIDO 1%/EPINEPHRINE 1:100,000 50 ML VIAL 20 ML INFILTRATE (15:00)
--- NOTE | 2023-08-12 15:37 | W.PM.PROC2 ---
Procedure Note - Detailed Date of Procedure 08/12/23 Pre-op Diagnosis colitis,new pancreatic and liver lesions Post-op Diagnosis Other (Pancreatic cancer with metastatic disease to liver.) Procedure Performed Placement of right internal jugular vein port catheter with intraoperative fluoroscopy Surgeon Gary Singh MD Anesthesia MAC Indications Patient is a 67-year-old female was admitted the hospital abdominal pain. Workup showed a pancreatic mass with lesions in the liver which appeared to be consistent with metastatic disease. she has been seen by Oncology and they recommend placement of delia catheter before she is discharged for administering chemotherapy. She did have a biopsy of the pancreatic mass and pathology is pending. Findings None significant Description of Procedure After informed consent was obtained patient brought to the operating room she was placed supine position and IV sedation was administered by anesthesia. The bilateral upper anterior neck and chest was then prepped and draped usual sterile fashion. A time-out was then performed correctly identifying the patient as well as procedure to be performed verifying the correct port to be placed. She was given Ancef for perioperative IV antibiotics. I then approached placement of the catheter in the right internal jugular vein. 1% lidocaine with with mixed with 0.5% Marcaine was injected just below the medial 3rd of the right clavicle and was also extended up into the anterior lateral neck on the right side between the 2 heads of the right sternocleidomastoid muscle. Then with the patient in the head-down Trendelenburg position I used a long 18gauge spinal needle to cannulate the right internal jugular vein on the 2nd pass without difficulty. There was prompt return of dark venous appearing blood. A guidewire was advanced through the needle into the right internal jugular vein subsequent down into the superior vena cava. I then made a transverse incision just below the medial 3rd of the clavicle the scalp was then dissected down through the subcutaneous tissues electrocautery to the anterior pectoralis fascia was encountered. I then created the subcutaneous port pocket by electrocautery and blunt finger dissection just below the incision. Once this was done I then advanced a tunneler between incision just below the clavicle and the small insertion site of the guidewire and the right anterior lateral neck. I then advanced a dilator and breakaway sheath over the guidewire and then removed the guidewire and dilator leaving the sheath in place. The 9.6 Armenian single-lumen catheter was then tunneled between the chest incision and neck incision. I then advanced the catheter into the sheath and into the right internal jugular vein and subsequently into the superior vena cava. The sheath was then torn away leaving the catheter in place. Intraoperative fluoroscopy was used to confirm that the catheter was in the proper position in the right atrium of the heart. Then with intraoperative fluoroscopy visualized the tip of the catheter and then pulled back on the catheter external to the chest wall until the tip of the catheter was in the distal superior vena cava. The catheter was then cut to the appropriate length the skin level and attached to the Smart Port. Smart port was then secured the subcutaneous port pocket utilizing 3-0 Prolene sutures on 3 opposite sides. I then irrigated out the port pocket with sterile saline solution and hemostasis was good. I then accessed the port with a [place] needle and aspirated blood easily. It was then flushed with heparinized saline solution. I then closed the incision utilizing interrupted 3-0 Vicryl sutures in subcutaneous tissues. This was then followed by a running subcuticular 4-0 Monocryl suture to close the skin. The small right anterior lateral neck skin incision was also closed utilizing a 4-0 Monocryl suture. Skin glue was the
[2023-08-12] MEDS: fentaNYL CITRATE INJ (*CRX) 100 MCG/2 ML VIAL 25 MCG IV PUSH ×2 (16:14→16:16)
--- NOTE | 2023-08-12 18:10 | PC.NURSE ---
Patient off unit for surgery at 1210. Noon meds held. Back on unit at 1635.
[2023-08-12] MEDS: AMOXICILLIN/CLAVULANATE K 875-125 MG TAB 1 TABLET PO (20:27)
[2023-08-12] MEDS: HYDROmorphone HCL INJ (*CRX) 1 MG/ML SYR 0.5 MG IV PUSH (20:28)
[2023-08-12] MEDS: ONDANSETRON INJ 4 MG/2 ML VIAL IV PUSH (22:54)
[2023-08-13] VITALS (8 sets, daily range): BP systolic 138–152; BP diastolic 78–90; PULSE 64–90; RESP 16–19; TEMP 36.1–36.6; O2SAT 90–96
[2023-08-13] MEDS: HYDROcodone/acetaminophen (*CRX) 7.5-325 MG TABLET 1 TAB PO ×5 (01:23→22:47)
[2023-08-13 08:55] LABS: Hematocrit 36.8 % (37.0-47.0); Hemoglobin 12.2 g/dL (12.0-15.0); Mean Corpuscular HGB Conc 33.2 g/dl (32-36); Mean Corpuscular Hemoglobin 33.7 pg (26-34); Mean Corpuscular Volume 101.7 fl (80-100); Mean Platelet Volume 10.4 fl (7.4-10.4); Platelet Count Result 265 k/mm3 (150-375); Red Blood Count 3.62 M/mm3 (4.2-5.4); Red Cell Distribution Width 14.2 % (11.5-14.5); White Blood Count 6.2 K/mm3 (4.5-10.0)
[2023-08-13] MEDS: amLODIPine BESYLATE 5 MG TABLET PO (09:04)
[2023-08-13 09:06] LABS: Anion Gap 8 mmol/L (4-12); Blood Urea Nitrogen 6 mg/dL (7-17); Calcium 8.7 mg/dL (8.4-10.2); Carbon Dioxide 28 mmol/L (22-30); Chloride 102 mmol/L (98-107); Estimated CRCL calculation 58 ml/min; Estimated Glomerular Filt Rate > 60; Glucose 108 mg/dL (65-110); Potassium 2.9 mmol/L (3.4-5.0); Sodium 138 mmol/L (137-145)
[2023-08-13] MEDS: PANTOPRAZOLE SODIUM IV 40 MG VIAL IV PUSH ×2 (09:06→19:59)
[2023-08-13] MEDS: NICOTINE (*PBKC) 21 MG PATCH 1 PATCH TRANSDERM (09:07)
[2023-08-13] MEDS: FLUTICASONE/UMECLIDIN/VILANTER 100-62.5-25 MCG ELLIPTA 1 PUFF INHALATION (10:03)
--- NOTE | 2023-08-13 11:20 | PM.IMPN ---
Progress Note: A&P Assessment and Plan (1) Abdominal pain: Code(s): R10.9 - Unspecified abdominal pain Status: Inactive Assessment and Plan: EGD February 2020 demonstrated gastritis, hiatal hernia. MRCP and gastric emptying study unremarkable in 2020. Colonoscopy in 2021 demonstrated diverticulosis and internal hemorrhoids. CT abdomen and pelvis 2 cm mass in the pancreas consistent with primary adeno carcinoma and liver masses consistent with metastatic disease plus colitis. Liver biopsy on 08/09 -- pathology pending. Analgesics as needed IV LR discontinued. Eating and drinking without problems. (2) Pancreatic lesion: Code(s): K86.9 - Disease of pancreas, unspecified Status: Acute Assessment and Plan: CT abdomen and pelvis 2 cm mass in the pancreas consistent with primary adeno carcinoma and liver masses consistent with metastatic disease. GI consulted. Oncology consulted. Liver biopsy on 08/09 -- pathology pending [id number] Interested in palliative chemotherapy. Mediport placement 08/11 (3) Colitis: Code(s): K52.9 - Noninfective gastroenteritis and colitis, unspecified Status: Acute Assessment and Plan: CT abdomen pelvis showing possible colitis. Patient was experiencing diarrhea intermittently before getting to the ED. Stool cultures are negative. Patient likely having diarrhea due to metastatic disease. Antibiotics discontinued. IV LR discontinued. [place] diet (4) Gastritis: Code(s): K29.70 - Gastritis, unspecified, without bleeding Status: Acute Assessment and Plan: Pantoprazole 40 mg IV b.i.d. (5) Aneurysm of aorta: Code(s): I71.9 - Aortic aneurysm of unspecified site, without rupture Status: Acute Assessment and Plan: 3.7 cm fusiform inferior aortic aneurysm. Continue to monitor (6) Tobacco abuse: Code(s): Z72.0 - Tobacco use Status: Acute Assessment and Plan: nicotine. Subjective Date/time seen: 08/13/23 11:20 Interval history: Patient still having problems with pain control. She is pretty sore after her port placement. Will keep an night help manage pain control as as replace her potassium. She is still having abdominal pain which is unchanged. She will likely knee pain medication at discharge for her abdominal pain as well as nausea medication. All the symptoms are likely related to patient's metastatic disease. Exam Narrative: GENERAL: Comfortable, no acute distress HENMT: moist mucous membranes, ulcerations around patients mouth EYES: EOM intact b/l NECK: no lymphadenopathy RESPIRATORY: distant lung sounds, no increased respiratory effort CARDIO: Regular rate and rhythm GI: soft, mild tenderness, bowel sounds present SKIN/EXTREMITIES: no rashes, no edema, no redness or tenderness NEURO: PROM intact, answers questions appropriately, A&O x4 Objective Data Vital Signs Vital Signs: Vital Signs - 24 hr 08/12/23 12:45 08/12/23 15:31 08/12/23 15:45 Temperature 98.9 F 97.0 F L Pulse Rate 74 86 78 Respiratory Rate 16 15 18 Blood Pressure 146/78 H 128/79 143/68 H Pulse Oximetry 100 94 95 Oxygen Delivery Room Air Room Air Room Air 08/12/23 16:15 08/12/23 16:00 08/12/23 12:00 Temperature Pulse Rate 72 75 78 Respiratory Rate 21 H 16 Blood Pressure 161/77 H 143/64 H Pulse Oximetry 100 96 Oxygen Delivery Room Air Room Air 08/12/23 17:30 08/12/23 20:00 08/12/23 20:00 Temperature 97.6 F Pulse Rate 78 77 Respiratory Rate 20 Blood Pressure 149/88 H Pulse Oximetry 93 Oxygen Delivery Room Air 08/12/23 22:44 08/13/23 00:00 08/13/23 04:00 Temperature 98.1 F Pulse Rate 79 73 64 Respiratory Rate 16 Blood Pressure 149/73 H Pulse Oximetry 94 Oxygen Delivery 08/13/23 06:00 08/13/23 09:10 Temperature 97.0 F L Pulse Rate 69 Respiratory Rate 16 Blood Pre
[2023-08-13] MEDS: ONDANSETRON INJ 4 MG/2 ML VIAL IV PUSH ×2 (12:00→18:20)
[2023-08-13] MEDS: POTASSIUM CHLORIDE INJ 40 MEQ in SODIUM CHLORIDE 0.9% IV 500 ML 130 MEQ IVPB (12:00)
[2023-08-13] MEDS: POTASSIUM CHLORIDE 20 MEQ ER TABLET 40 MEQ PO (12:00)
[2023-08-14] VITALS (9 sets, daily range): BP systolic 136–166; BP diastolic 75–87; PULSE 65–90; RESP 16–18; TEMP 36.7–36.9; O2SAT 96–98
[2023-08-14] MEDS: HYDROcodone/acetaminophen (*CRX) 7.5-325 MG TABLET 1 TAB PO ×4 (03:18→20:28)
[2023-08-14 06:21] LABS: Hematocrit 35.3 % (37.0-47.0); Hemoglobin 11.8 g/dL (12.0-15.0); Mean Corpuscular HGB Conc 33.4 g/dl (32-36); Mean Corpuscular Hemoglobin 33.7 pg (26-34); Mean Corpuscular Volume 100.9 fl (80-100); Mean Platelet Volume 10.2 fl (7.4-10.4); Platelet Count Result 255 k/mm3 (150-375); Red Cell Distribution Width 14.6 % (11.5-14.5); White Blood Count 7.2 K/mm3 (4.5-10.0)
[2023-08-14 06:23] LABS: Alanine Aminotransferase 25 U/L (6-35); Albumin Level 3.5 g/dL (3.5-5.1); Alkaline Phosphatase 64 U/L (38-126); Anion Gap 2 mmol/L (4-12); Aspartate Amino Transferase 38 U/L (14-36); Bilirubin,Total 0.6 mg/dL (0.2-1.3); Blood Urea Nitrogen 4 mg/dL (7-17); Calcium 8.9 mg/dL (8.4-10.2); Carbon Dioxide 32 mmol/L (22-30); Chloride 102 mmol/L (98-107); Estimated CRCL calculation 51 ml/min; Estimated Glomerular Filt Rate > 60; Glucose 107 mg/dL (65-110); Potassium 3.5 mmol/L (3.4-5.0); Sodium 136 mmol/L (137-145)
[2023-08-14] MEDS: PANTOPRAZOLE SODIUM IV 40 MG VIAL IV PUSH ×2 (08:54→20:27)
[2023-08-14] MEDS: NICOTINE (*PBKC) 21 MG PATCH 1 PATCH TRANSDERM (08:55)
[2023-08-14] MEDS: ONDANSETRON INJ 4 MG/2 ML VIAL IV PUSH (08:55)
[2023-08-14] MEDS: amLODIPine BESYLATE 5 MG TABLET PO (08:55)
--- NOTE | 2023-08-14 14:04 | PM.IMPN ---
Progress Note: A&P Assessment and Plan (1) Abdominal pain: Code(s): R10.9 - Unspecified abdominal pain Status: Inactive Assessment and Plan: EGD February 2020 demonstrated gastritis, hiatal hernia. MRCP and gastric emptying study unremarkable in 2020. Colonoscopy in 2021 demonstrated diverticulosis and internal hemorrhoids. CT abdomen and pelvis 2 cm mass in the pancreas consistent with primary adeno carcinoma and liver masses consistent with metastatic disease plus colitis. Liver biopsy on 08/09 -- pathology pending. Analgesics as needed IV LR discontinued. Eating and drinking without problems. Alternate Zofran and Compazine for nausea (2) Pancreatic lesion: Code(s): K86.9 - Disease of pancreas, unspecified Status: Acute Assessment and Plan: CT abdomen and pelvis 2 cm mass in the pancreas consistent with primary adeno carcinoma and liver masses consistent with metastatic disease. GI consulted. Oncology consulted. Liver biopsy on 08/09 -- pathology pending [id number] Interested in palliative chemotherapy. Mediport placement 08/11 (3) Colitis: Code(s): K52.9 - Noninfective gastroenteritis and colitis, unspecified Status: Acute Assessment and Plan: CT abdomen pelvis showing possible colitis. Patient was experiencing diarrhea intermittently before getting to the ED. Stool cultures are negative. Patient likely having diarrhea due to metastatic disease. Antibiotics discontinued. IV LR discontinued. [place] diet (4) Gastritis: Code(s): K29.70 - Gastritis, unspecified, without bleeding Status: Acute Assessment and Plan: Pantoprazole 40 mg IV b.i.d. (5) Aneurysm of aorta: Code(s): I71.9 - Aortic aneurysm of unspecified site, without rupture Status: Acute Assessment and Plan: 3.7 cm fusiform inferior aortic aneurysm. Continue to monitor (6) Tobacco abuse: Code(s): Z72.0 - Tobacco use Status: Acute Assessment and Plan: nicotine. Subjective Date/time seen: 08/14/23 14:04 Interval history: Sat with the patient and granddaughter for greater than 2 hours to discussed patient's imaging results as well as the likelihood of her being diagnosed with pancreatic cancer. They were very understanding of this. Discussed that if they did not want to proceed treatment our Oncology here at [facility] that they can get a referral from their PCP. Encouraged that if they want this done and needs to be arranged [facility]. They are considering moving to [facility] that are unsure. Patient states that she is having a lot of anxiety mood like something for this. She is very tearful about the aspect of getting cancer treatment. She stated that she did not want aggressive therapy but would be open to a palliative chemotherapy. Exam Narrative: GENERAL: Comfortable, no acute distress HENMT: moist mucous membranes, ulcerations around patients mouth EYES: EOM intact b/l NECK: no lymphadenopathy RESPIRATORY: distant lung sounds, no increased respiratory effort CARDIO: Regular rate and rhythm GI: soft, mild tenderness, bowel sounds present SKIN/EXTREMITIES: no rashes, no edema, no redness or tenderness NEURO: PROM intact, answers questions appropriately, A&O x4 Objective Data Vital Signs Vital Signs: Vital Signs - 24 hr 08/13/23 14:49 08/13/23 16:00 08/13/23 19:56 Temperature 97.9 F 97.7 F Pulse Rate 72 90 79 Respiratory Rate 19 18 Blood Pressure 138/90 138/78 Pulse Oximetry 90 96 Oxygen Delivery 08/13/23 20:00 08/14/23 04:09 08/14/23 00:00 Temperature 98.4 F Pulse Rate 73 70 Respiratory Rate 16 Blood Pressure 166/87 H Pulse Oximetry 96 Oxygen Delivery Room Air 08/14/23 04:00 Temperature Pulse Rate 74 Respiratory Rate Blood Pressure Pulse Oximetry Oxygen Delivery Intake/Output Intake/Output: Intake &
[2023-08-14] MEDS: FLUTICASONE/UMECLIDIN/VILANTER 100-62.5-25 MCG ELLIPTA 1 PUFF INHALATION (14:10)
[2023-08-14] MEDS: LORazepam INJ (*CRX) 2 MG/ML VIAL 0.5 MG IV PUSH (14:24)
[2023-08-14] MEDS: PROCHLORPERAZINE EDISYLATE 10 MG/2 ML VIAL IV PUSH (20:27)
[2023-08-14] MEDS: LORazepam (*CRX) 0.5 MG TABLET PO (20:28)
[2023-08-15] VITALS (10 sets, daily range): BP systolic 137–149; BP diastolic 77–89; PULSE 67–106; RESP 16–18; TEMP 36.4–36.6; O2SAT 92–97
[2023-08-15] MEDS: PROCHLORPERAZINE EDISYLATE 10 MG/2 ML VIAL IV PUSH ×2 (04:44→18:22)
[2023-08-15] MEDS: HYDROcodone/acetaminophen (*CRX) 7.5-325 MG TABLET 1 TAB PO ×5 (04:45→22:21)
[2023-08-15 06:12] LABS: Hematocrit 34.5 % (37.0-47.0); Hemoglobin 11.5 g/dL (12.0-15.0); Mean Corpuscular HGB Conc 33.3 g/dl (32-36); Mean Corpuscular Hemoglobin 33.5 pg (26-34); Mean Corpuscular Volume 100.6 fl (80-100); Mean Platelet Volume 10.2 fl (7.4-10.4); Platelet Count Result 277 k/mm3 (150-375); Red Blood Count 3.43 M/mm3 (4.2-5.4); Red Cell Distribution Width 14.5 % (11.5-14.5); White Blood Count 5.9 K/mm3 (4.5-10.0)
[2023-08-15 06:20] LABS: Anion Gap 5 mmol/L (4-12); Blood Urea Nitrogen 8 mg/dL (7-17); Calcium 8.7 mg/dL (8.4-10.2); Carbon Dioxide 26 mmol/L (22-30); Chloride 104 mmol/L (98-107); Estimated CRCL calculation 58 ml/min; Estimated Glomerular Filt Rate > 60; Glucose 106 mg/dL (65-110); Potassium 3.3 mmol/L (3.4-5.0); Sodium 135 mmol/L (137-145)
[2023-08-15] MEDS: FLUTICASONE/UMECLIDIN/VILANTER 100-62.5-25 MCG ELLIPTA 1 PUFF INHALATION (08:54)
[2023-08-15] MEDS: PANTOPRAZOLE SODIUM IV 40 MG VIAL IV PUSH ×2 (09:32→21:28)
[2023-08-15] MEDS: amLODIPine BESYLATE 5 MG TABLET PO (09:32)
[2023-08-15] MEDS: NICOTINE (*PBKC) 21 MG PATCH 1 PATCH TRANSDERM (09:32)
[2023-08-15] MEDS: POTASSIUM CHLORIDE 20 MEQ ER TABLET 40 MEQ PO (09:39)
[2023-08-15 10:11] LABS: Potassium 2.8 mmol/L (3.4-5.0)
--- NOTE | 2023-08-15 11:30 | PM.IMPN ---
Progress Note: A&P Assessment and Plan (1) Pancreatic lesion: Code(s): K86.9 - Disease of pancreas, unspecified Status: Acute Assessment and Plan: CT abdomen and pelvis 2 cm mass in the pancreas consistent with primary adeno carcinoma and liver masses consistent with metastatic disease. GI consulted. Oncology consulted. Liver biopsy on 08/09 -- pathology pending [id number] Interested in palliative chemotherapy. Mediport placement 08/11 Attemp to call pathology lab regarding patients results. (2) Abdominal pain: Code(s): R10.9 - Unspecified abdominal pain Status: Inactive Assessment and Plan: EGD February 2020 demonstrated gastritis, hiatal hernia. MRCP and gastric emptying study unremarkable in 2020. Colonoscopy in 2021 demonstrated diverticulosis and internal hemorrhoids. CT abdomen and pelvis 2 cm mass in the pancreas consistent with primary adeno carcinoma and liver masses consistent with metastatic disease plus colitis. Liver biopsy on 08/09 -- pathology pending. Analgesics as needed IV LR discontinued. Eating and drinking without problems. Alternate Zofran and Compazine for nausea (3) Colitis: Code(s): K52.9 - Noninfective gastroenteritis and colitis, unspecified Status: Acute Assessment and Plan: CT abdomen pelvis showing possible colitis. Patient was experiencing diarrhea intermittently before getting to the ED. Stool cultures are negative. C. diff neg Patient likely having diarrhea due to metastatic disease. Antibiotics discontinued (treated for 5 days) IV LR discontinued. (4) Gastritis: Code(s): K29.70 - Gastritis, unspecified, without bleeding Status: Acute Assessment and Plan: Pantoprazole 40 mg IV b.i.d. (5) Aneurysm of aorta: Code(s): I71.9 - Aortic aneurysm of unspecified site, without rupture Status: Acute Assessment and Plan: 3.7 cm fusiform inferior aortic aneurysm. Continue to monitor (6) Tobacco abuse: Code(s): Z72.0 - Tobacco use Status: Acute Assessment and Plan: nicotine. Subjective Date/time seen: 08/15/23 11:30 Interval history: Patient is having a lot less pain and less nausea today. Attempted calling pathology lab regarding patient's pathology results. I have also called Oncology and they have not received patient's results. They are encouraging patient to follow them up in their office. Will await to hear back from pathology regarding patient's results. Now the patient is feeling better hoping to discharge her tomorrow. Exam Narrative: GENERAL: Comfortable, no acute distress HENMT: moist mucous membranes, ulcerations around patients mouth EYES: EOM intact b/l NECK: no lymphadenopathy RESPIRATORY: distant lung sounds, no increased respiratory effort CARDIO: Regular rate and rhythm GI: soft, mild tenderness, bowel sounds present SKIN/EXTREMITIES: no rashes, no edema, no redness or tenderness NEURO: PROM intact, answers questions appropriately, A&O x4 Objective Data Vital Signs Vital Signs: Vital Signs - 24 hr 08/14/23 14:24 08/14/23 12:00 08/14/23 16:00 Temperature 98.1 F Pulse Rate 85 90 77 Respiratory Rate 17 Blood Pressure 136/75 Pulse Oximetry 98 Oxygen Delivery 08/14/23 20:50 08/14/23 20:00 08/14/23 20:00 Temperature 98.3 F Pulse Rate 77 82 77 Respiratory Rate 18 18 Blood Pressure 138/78 Pulse Oximetry 96 96 Oxygen Delivery Room Air 08/15/23 00:00 08/15/23 04:00 08/15/23 05:01 Temperature 97.9 F Pulse Rate 80 67 75 Respiratory Rate 18 Blood Pressure 137/83 Pulse Oximetry 94 Oxygen Delivery 08/15/23 08:54 Temperature Pulse Rate Respiratory Rate Blood Pressure Pulse Oximetry 92 Oxygen Delivery Room Air Intake/Output Intake/Output: Intake & Output 08/12/23 08/13/23 08/14/23 08/15/23 23:59 23:59 23:
--- NOTE | 2023-08-15 14:02 | WPDGIPROGNO ---
Progress Note: A&P Assessment and Plan (1) Pancreatic mass: Code(s): K86.89 - Other specified diseases of pancreas Status: Acute Assessment and Plan: liver biopsy showed adenocarcinoma- most likely pancreatic primary oncology on board no objections to discharge, s/p port-a-cath and start chemotherapy as outpatient will need meds for pain and antiemetics (2) Metastasis to liver: Code(s): C78.7 - Secondary malignant neoplasm of liver and intrahepatic bile duct Status: Acute Assessment and Plan: patient aware of biopsy result (3) Nausea and vomiting: Code(s): R11.2 - Nausea with vomiting, unspecified Status: Acute Assessment and Plan: antiemetics, now compazine (4) Elevated liver enzymes: Code(s): R74.8 - Abnormal levels of other serum enzymes Status: Acute Assessment and Plan: from malignancy (5) IBS (irritable colon syndrome): Qualifiers: Irritable bowel syndrome type: with both diarrhea and constipation Qualified Code(s): K58.2 - Mixed irritable bowel syndrome Code(s): K58.9 - Irritable bowel syndrome without diarrhea Status: Acute Subjective Date/time seen: 08/15/23 14:02 Interval history: nausea improved after compazine, still some abdominal pain I just told her about confirmatory diagnosis of liver mets c/w adenocarcinoma Review of Systems Review of Systems: All systems reviewed & are unremarkable except as noted in HPI and below Exam Const: General: cooperative, healthy appearing, comfortable and no acute distress Orientation/consciousness: oriented to person, oriented to place and oriented to time HENMT: Head: normal to inspection Eyes: General: appearance normal, both eyes and all related structures Neck: Neck: no JVD Chest: Chest palpation & inspection: normal inspection of the chest Resp: Effort & Inspection: normal respiratory effort and able to speak in complete sentences Auscultation: clear to auscultation bilaterally Cardio: Rate: regular rate Rhythm: regular rhythm GI: Inspection: normal to inspection GI Palp: Yes Soft to palpation Auscultation: normal bowel sounds Skin: General skin exam: normal color and no rashes or lesions noted Neuro: General: oriented to person, oriented to place and oriented to time Speech: normal speech Extrem: General: normal to inspection Psych: Mental Status: mental status grossly normal Objective Data Vital Signs Vital Signs: Vital Signs - 24 hr 08/14/23 14:24 08/14/23 16:00 08/14/23 20:50 Temperature 98.1 F 98.3 F Pulse Rate 85 77 77 Respiratory Rate 17 18 Blood Pressure 136/75 138/78 Pulse Oximetry 98 96 Oxygen Delivery 08/14/23 20:00 08/14/23 20:00 08/15/23 00:00 Temperature Pulse Rate 82 77 80 Respiratory Rate 18 Blood Pressure Pulse Oximetry 96 Oxygen Delivery Room Air 08/15/23 04:00 08/15/23 05:01 08/15/23 08:54 Temperature 97.9 F Pulse Rate 67 75 Respiratory Rate 18 Blood Pressure 137/83 Pulse Oximetry 94 92 Oxygen Delivery Room Air Intake/Output Intake/Output: Intake & Output 08/12/23 08/13/23 08/14/23 08/15/23 23:59 23:59 23:59 23:59 Intake Total 1390 1500 1630 630 Output Total 3500 2600 1350 700 Balance -2110 -1100 280 -70 Meds/Results Medications: Active Medications Generic Name Dose Route Start Last Admin Trade Name Freq PRN Reason Stop Dose Admin Hydrocodone Bitart/Acetaminophen 1 tab 08/10/23 11:04 08/15/23 09:39 Hydrocodone/Acetaminophen (*Crx) 7.5-325 Mg Tablet PO 1 tab Q4H PRN Administration SEVERE PAIN 7-10 Amlodipine Besylate 5 mg 08/11/23 09:00 08/15/23 09:32 Amlodipine Besylate 5 Mg Tablet PO 5 mg DAILY ERIC Administration Dicyclomine HCl 20 mg 08/09/23 20:51 Dicyclomine Hcl Inj 20 Mg/2 Ml Vial IM QID PRN Cramping Fentanyl Citrate 25 mcg 08/12/23 13:13 08/12/23 16:16 Fentanyl Citrate Inj (*Crx) 10
[2023-08-15] MEDS: LORazepam (*CRX) 0.5 MG TABLET PO (21:28)
[2023-08-16] VITALS: PULSE 76
[2023-08-16] MEDS: PROCHLORPERAZINE EDISYLATE 10 MG/2 ML VIAL IV PUSH (02:24)
[2023-08-16] MEDS: HYDROcodone/acetaminophen (*CRX) 7.5-325 MG TABLET 1 TAB PO ×2 (02:24→07:29)
[2023-08-16 04:00] VITALS: PULSE 79
[2023-08-16 05:47] LABS: Hematocrit 33.4 % (37.0-47.0); Hemoglobin 11.1 g/dL (12.0-15.0); Mean Corpuscular HGB Conc 33.2 g/dl (32-36); Mean Corpuscular Hemoglobin 33.4 pg (26-34); Mean Corpuscular Volume 100.6 fl (80-100); Mean Platelet Volume 10.2 fl (7.4-10.4); Platelet Count Result 284 k/mm3 (150-375); Red Blood Count 3.32 M/mm3 (4.2-5.4); Red Cell Distribution Width 14.6 % (11.5-14.5); White Blood Count 8.9 K/mm3 (4.5-10.0)
[2023-08-16 05:58] LABS: Anion Gap 2 mmol/L (4-12); Blood Urea Nitrogen 13 mg/dL (7-17); Calcium 8.8 mg/dL (8.4-10.2); Carbon Dioxide 26 mmol/L (22-30); Chloride 105 mmol/L (98-107); Estimated CRCL calculation 51 ml/min; Estimated Glomerular Filt Rate > 60; Glucose 109 mg/dL (65-110); Potassium 4.1 mmol/L (3.4-5.0); Sodium 133 mmol/L (137-145)
[2023-08-16 06:00] VITALS: BP 116/66; PULSE 82; RESP 16; TEMP 36.3; O2SAT 94
[2023-08-16] MEDS: ONDANSETRON INJ 4 MG/2 ML VIAL IV PUSH (07:30)
[2023-08-16] MEDS: FLUTICASONE/UMECLIDIN/VILANTER 100-62.5-25 MCG ELLIPTA 1 PUFF INHALATION (07:32)
[2023-08-16 07:33] VITALS: PULSE 88; RESP 20; O2SAT 96
[2023-08-16 08:00] VITALS: PULSE 77
[2023-08-16] MEDS: PANTOPRAZOLE SODIUM IV 40 MG VIAL IV PUSH (08:41)
[2023-08-16] MEDS: NICOTINE (*PBKC) 21 MG PATCH 1 PATCH TRANSDERM (08:42)
[2023-08-16] MEDS: amLODIPine BESYLATE 5 MG TABLET PO (08:42)
--- NOTE | 2023-08-16 09:43 | PCNWS ---
Weekly nutritional screen. Patient is tolerating current diet with adequate intake. No weight loss reported. No nutritional needs at this time.
[2023-08-16 12:00] VITALS: PULSE 89
--- NOTE | 2023-08-16 12:29 | PM.DS ---
DS: Admitting Diagnosis Discharge Date 08/16/23 Admitting Diagnosis nausea, vomiting, pancreatic mass DS: Discharge Diagnosis Discharge Diagnosis (1) Pancreatic lesion: Code(s): K86.9 - Disease of pancreas, unspecified Status: Acute (2) Abdominal pain: Code(s): R10.9 - Unspecified abdominal pain Status: Inactive (3) Colitis: Code(s): K52.9 - Noninfective gastroenteritis and colitis, unspecified Status: Acute (4) Gastritis: Code(s): K29.70 - Gastritis, unspecified, without bleeding Status: Acute (5) Aneurysm of aorta: Code(s): I71.9 - Aortic aneurysm of unspecified site, without rupture Status: Acute (6) Tobacco abuse: Code(s): Z72.0 - Tobacco use Status: Acute DS: Summary Hospital Course Hospital Course: 67-year-old female with past medical history active tobacco abuse, hypertension, irritable bowel syndrome, diverticulitis, gastritis, aortic aneurysm, COPD, peripheral artery disease, who presents with worsening abdominal pain nausea and and nonbloody diarrhea, chills. She has been followed for some time with Dr. Dietrich for this issue and has been prescribed hyoscyamine, Tagamet Zofran p.r.n..? EGD February 2020 demonstrated gastritis, hiatal hernia.? MRCP and gastric emptying study unremarkable in 2020.? Colonoscopy in 2021 demonstrated diverticulosis and internal hemorrhoids.?The preliminary read on the CT abdomen reported diverticulitis, she was prescribed Augmentin and Zofran and sent home.? She was called back for the official read demonstrated a 2 cm mass in the pancreas consistent with primary a dental carcinoma and liver masses consistent with metastatic disease plus colitis.? patient was admitted for biopsy of the pancreas. Unfortunately she was unable to get a biopsy of the pancreas so she had a biopsy of her liver where the masses were seen. Oncology was consulted on patient's case as well as GI. Patient was admitted and received pain medication and nausea medication. She received 5 days worth of antibiotics for her colitis. There was difficulty controlling patient's nausea. She was transition to Compazine. it was discussed with the patient and her granddaughter imaging results as well as the likelihood of her being diagnosed with pancreatic cancer.? she was understanding of this. She had discussed with Dr. Jose odd and was open to palliative chemotherapy. Patient had MediPort placed during her hospitalization. Patient's pathology results returned with adenocarcinoma with unknown primary source. It s most likely that primary sources the pancreas with metastatic disease in the liver. She is to follow-up with Dr. Brooks as an outpatient. Time Spent with Patient Time attestation: Total time spent providing and/or coordinating discharge services: Exam Narrative: GENERAL: Comfortable, no acute distress HENMT: moist mucous membranes, ulcerations around patients mouth EYES: EOM intact b/l NECK: no lymphadenopathy RESPIRATORY: distant lung sounds, no increased respiratory effort CARDIO: Regular rate and rhythm GI: soft, mild tenderness, bowel sounds present SKIN/EXTREMITIES: no rashes, no edema, no redness or tenderness NEURO: PROM intact, answers questions appropriately, A&O x4 DS: Data Data Completed and Pending Completed studies during hospitalization: Pending at discharge 08/10/23 14:38 Surgical [PTH] Routine Labs on day of discharge: Labs from last 24 hours 08/16/23 05:28 WBC 8.9 RBC 3.32 L Hgb 11.1 L Hct 33.4 L MCV 100.6 H MCH 33.4 MCHC 33.2 RDW 14.6 H Plt Count 284 MPV 10.2 Sodium 133 L Potassium 4.1 Chloride 105 Carbon Dioxide 26 Anion Gap 2 L BUN 13 D Creatinine 0.70 Estim Creat Clear Calc 51 Estimated GFR > 60 Glucose 109 Calcium 8.8 Discharge Plan Discharge Consulting providers: Ricky Shell; Jeffery Garcia; [facility]
== END 2023-08-16 13:50 | disposition home or self-care (01) | DRG 436 ==
LOC: ANHED 17:11 → ANH3MED 17:50
PROVIDERS: Internal Medicine Critical Care Medicine; Nurse Practitioner; Surgery; Admitting Provider General Practice; Emergency Provider Student in an Organized Health Care Education/Training Program; PCP Family Medicine; Visit Provider General Practice
PROC: 02HV33Z Insertion of Infusion Device into Superior Vena Cava, Percutaneous Approach (ICD-10-PCS; principal; 2023-08-12 13:00)
DX: C25.9 Malignant neoplasm of pancreas, unspecified (principal); C78.7 Secondary malignant neoplasm of liver and intrahepatic bile duct; K52.9 Noninfective gastroenteritis and colitis, unspecified; F17.210 Nicotine dependence, cigarettes, uncomplicated; I10 Essential (primary) hypertension; I71.9 Aortic aneurysm of unspecified site, without rupture; I73.9 Peripheral vascular disease, unspecified; J43.9 Emphysema, unspecified; Z90.49 Acquired absence of other specified parts of digestive tract; Z90.710 Acquired absence of both cervix and uterus
CPT/HCPCS: 36415; 47000; 71045; 74177; 76942; 77001; 80048; 80053; 80307; 81001; 82948; 83605; 83630; 83690; 83735; 84132; 84145; 84484; 85025; 85027; 85610; 85730; 86301; 87045; 87427; 87449; 87493; 88307; 88342; 93005; 94640; 96361; 96374; 96375; 96376; 99284; 99285; A9270; C1788; C9113; J0500; J0690; J0780; J1170; J1200; J1644; J2060; J2405; J2543; J2704; J2765; J3010; J3480; J7030; J7040; J7120; Q9967

== ENCOUNTER 2023-12-16 15:18 | Outpatient (CLI) | payer OTHER, SELFPAY ==
--- NOTE | 2023-12-16 15:26 | ECG_ITS ---
Test Date: 2023-12-16 15:33:34 Measurements Intervals [place] Rate: 81 P: 76 WV: 157 QRS: 65 QRSD: 71 T: 64 QT: 354 QTc: 412 Interpretive Statements SINUS RHYTHM No previous ECG available for comparison Electronically Signed On 12-17-2023 14:30:48 CDT by Heladio Tavares M.D.
== END 2023-12-16 15:19 | disposition home or self-care (01) ==
LOC: ANHCARD 15:20
PROVIDERS: PCP Family Medicine; Visit Provider Physician Assistant Medical
DX: I49.9 Cardiac arrhythmia, unspecified (principal)
CPT/HCPCS: 93005